=== PATIENT | female | born 1970 | race Caucasian/White ===

== ENCOUNTER → 2016-12-16 | Outpatient (CLI) | payer BC ==
[~2016-12-16] MED LIST: BCPILLS PO; IBUP-1050 PO
--- NOTE | 2016-12-16 12:32 | MAMMOGRAPHY REPORT ---
BILATERAL DIGITAL SCREENING MAMMOGRAM TOMOSYNTHESIS WITH CAD: 12/16/2016 TECHNIQUE: Breast tomosynthesis in addition to standard 2D mammography was performed. Current study was also evaluated with a Computer Aided Detection (CAD) system. COMPARISON: Comparison is made to exams dated: 12/16/2015 mammogram, 12/12/2014 mammogram, 12/11/2013 mammogram, 12/02/2012 mammogram, and 11/26/2011 mammogram - [facility]. BREAST COMPOSITION: The tissue of both breasts is heterogeneously dense, which may obscure small ma sses. FINDINGS: No suspicious masses, calcifications, or areas of architectural distortion are noted in e ither breast. There has been no significant interval change compared to prior exams. Scattered bilat eral benign-appearing calcifications are not significantly changed. IMPRESSION: ACR BI-RADS CATEGORY 2: BENIGN There is no mammographic evidence of malignancy. A 1 year screening mammogram is recommended. The p atient will receive written notification of the results. Approximately 10% of breast cancers are not detected with mammography. A negative mammographic repor t should not delay biopsy if a clinically suggestive mass is present. Olivia Wong M.D. ah/:12/16/2016 10:18:54 Program Director Air Talent: Estefanía DECKER(Marzena)(Solange), [facility] letter sent: Normal 1/2 BI-RADS Code: ACR BI-RADS Category 2: Benign
== END | disposition home or self-care (01) ==
LOC: C.MAMM 09:50
PROVIDERS: ATTEND Obstetrics & Gynecology
DX: Z12.31 Encounter for screening mammogram for malignant neoplasm of breast (principal)

== ENCOUNTER → 2017-01-15 | Outpatient (CLI) | payer BC | END | disposition home or self-care (01) | LOC: C.PAPS 13:44 | PROVIDERS: ATTEND Obstetrics & Gynecology | DX: Z01.419 Encounter for gynecological examination (general) (routine) without abnormal findings (principal); R87.616 Satisfactory cervical smear but lacking transformation zone ==

== ENCOUNTER 2017-06-05 19:42 | Emergency (ER) | payer BC ==
[~2017-06-05] VITALS: Ht 165.1 cm; Wt 61.1 kg
[2017-06-05 19:47] VITALS: BP 154/101; PULSE 79; TEMP 36.8; O2SAT 92; Ht 165.1 cm; Wt 61.1 kg
--- NOTE | 2017-06-05 20:50 | DIAGNOSTIC IMAGING REPORT ---
LEFT VENOUS DOPP LOWER EXT UNILAT CLINICAL HISTORY: Left leg swelling - R/O DVT pain. Edema. TECHNIQUE: Venous Doppler COMPARISON STUDY: None FINDINGS: Normal study IMPRESSION: Normal study The above report was generated using voice recognition software. It may contain grammatical, syntax or spelling errors. Electronically signed by: Andrea Cardoso M.D. 06/05/2017 8:49 PM Dictated Date/Time: 06/05/2017 8:48 PM
--- NOTE | 2017-06-06 00:42 | EMERGENCY ROOM VISIT NOTE ---
History First contact with patient: 19:51 Chief Complaint: LEG PAIN,LEG INJURY Stated Complaint: SWELLING AND PAININ LEG - BLOOD CLOT?? History of Present Illness The patient is a 46 year old female who presents to the Emergency Room with complaints of swelling and pain in her left leg. The patient reports that she just returned from a 12 day trip to [facility]. The patient reports that she did do a lot of walking while there. She is currently wearing a fracture boot after being treated for a second metatarsal stress fracture just a few days before leaving on her trip. She is under the management of Dr. Trinidad, and was told to wear the boot for approximately 4 weeks. The patient reports that she was at the football game today, and was seen by a neurosurgeon who suggested that she have an ultrasound performed to rule out blood clot. The patient is on an oral contraceptive. She denies any history of tobacco use. She also denies any prior history of blood clots. She rates her discomfort a 4 out of 10. Review of Systems 10 system review was performed and was negative except for pertinent positives and negatives as indicated in history of present illness Past Medical/Surgical History Medical Problems: (1) Nonrheumatic Aortic (Valve) Insufficiency (2) Umbilical Hernia Surgical Problems: (1) History of tonsillectomy (2) History of umbilical hernia repair Family History FH: heart disease FH: hypertension Social History Smoking Status: Never Smoker Alcohol Use: occasionally Marital Status: Housing Status: lives with family Occupation Status: unemployed Current/Historical Medications Scheduled Control Pills ( Control Pills), 1 TAB PO DAILY Physical Exam Vital Signs Date Time Temp Pulse Resp B/P (MAP) Pulse Ox O2 Delivery O2 Flow Rate FiO2 06/05/17 19:47 36.8 79 18 154/101 92 Room Air Physical Exam CONSTITUTIONAL: Healthy and well nourished. Alert and oriented X 3 with positive affect. HEENT: Normocephalic, atraumatic. Pupils equal, round and reactive. NECK: Full active range of motion without discomfort. RESPIRATORY: Clear to auscultation bilaterally with no wheezing, crackles, rhonchi or stridor. CARDIOVASCULAR: Regular rate and rhythm with no murmurs, rubs or gallops. MUSCULOSKELETAL: Examination shows mild edema of the left lower extremity. No ecchymosis or erythema noted. She has mild tenderness to palpation through the gastrocnemius. No focal tenderness through the hamstrings or posterior biceps. Negative logroll. Negative sitting straight leg raise. Pedal pulses are intact. INTEGUMENTARY: No rash or other significant dermatologic conditions noted. NEUROLOGIC: Left foot and toes are sensory intact. Medical Decision & Procedures ER Provider Diagnostic Interpretation: Venous ultrasound of the left lower extremity is negative for deep vein thrombosis. Radiologist report is as follows: LEFT VENOUS DOPP LOWER EXT UNILAT CLINICAL HISTORY: Left leg swelling - R/O DVT pain. Edema. TECHNIQUE: Venous Doppler COMPARISON STUDY: None FINDINGS: Normal study IMPRESSION: Normal study ED Course Patient history and physical exam were performed. Nurse's notes were reviewed. Vital signs were reviewed and were normal. The patient refused any analgesics. Venous ultrasound of the left lower extremity is negative for DVT. The patient was advised of her results. She was encouraged to intermittently apply heat and elevate the leg. She was also given instructions on heel pump and toe curl exercises to also help with the swelling. She was encouraged to follow-up with Dr. Trinidad as needed for further management. The patient voiced understanding of all discharge instructions, and was happy with plan of care. Medical Decision I suspect that the patient's edema is likely secondary to ankle immobilization and dependent edema from her fracture boot use. Her ultrasound does not show any evidence for deep vein thrombosis. The patient denies any injury to the leg while in [facility]. She has no skin changes consistent with cellulitis. I do not suspect underlying bony injury or pathologic lesion. Medication Reconcilliation Current Medication List: was personally reviewed by or Blood Pressure Screening Patient's blood pressure: Normal blood pressure Impression Primary Impression: Edema of left lower extremity Departure Information Referrals James Gordon M.D. (PCP) Patient Instructions My [facility]
== END 2017-06-05 21:06 | disposition home or self-care (01) ==
LOC: C.EDB 19:44 → C.EDD 21:06
DX: R60.0 Localized edema (principal); Z82.49 Family history of ischemic heart disease and other diseases of the circulatory system; Z79.3 Long term (current) use of hormonal contraceptives

== ENCOUNTER → 2017-06-15 | Outpatient (CLI) | payer BC ==
[~2017-06-15] MED LIST changes: -IBUP-1050 PO
[2017-06-15 13:36] LABS: BASO % 1.6 %; BASO ABS # 0.09 K/uL (0-0.2); COMPLETE YES; EOS % 1.9 %; HEMATOCRIT 37.8 % (37-47); IG% 0.3 %; LYMPH ABS # 2.43 K/uL (1.2-3.4); MEAN CELL VOLUME 91.3 fL (80-100); MEAN CORPUSCULAR HEMOGLOBIN 31.2 pg (25-34); MEAN CORPUSCULAR HGB CONC 34.1 g/dl (32-36); MEAN PLATELET VOLUME 9.7 fL (7.4-10.4); MONO % 3.5 %; NEUT % 50.7 %; PLATELET COUNT 272 K/uL (130-400); RED BLOOD COUNT 4.14 M/uL (4.2-5.4); WHITE BLOOD COUNT 5.78 K/uL (4.8-10.8)
[2017-06-15 14:23] LABS: ALT/SGPT 29 U/L (12-78); AST/SGOT 30 U/L (15-37); BLOOD UREA NITROGEN 12 mg/dl (7-18); BUN/CREATININE RATIO 19.8 (10-20); CALCIUM 9.1 mg/dl (8.5-10.1); CARBON DIOXIDE 28 mmol/L (21-32); CHLORIDE 106 mmol/L (98-107); CREATININE 0.62 mg/dl (0.60-1.20); GLUCOSE 88 mg/dl (70-99); POTASSIUM 3.9 mmol/L (3.5-5.1); SODIUM 140 mmol/L (136-145)
[2017-06-15 14:34] LABS: ALB/GLOB RATIO 1.2 (0.9-2); ALKALINE PHOSPHATASE 22 U/L (45-117)
[2017-06-15 14:51] LABS: LYME DISEASE AB IGG NEG (NEG); LYME DISEASE AB IGM NEG (NEG)
== END | disposition home or self-care (01) ==
LOC: C.LABBC 11:48
PROVIDERS: ATTEND Physician Assistant
DX: R51 Headache (principal)

== ENCOUNTER → 2017-10-05 | Outpatient (CLI) | payer BC | END | disposition home or self-care (01) | LOC: C.MAMM 13:59 | PROVIDERS: ATTEND Physician Assistant Medical | DX: M84.376A Stress fracture, unspecified foot, initial encounter for fracture (principal) ==

== ENCOUNTER → 2017-10-06 | Outpatient (CLI) | payer BC ==
--- NOTE | 2017-10-06 15:32 | MAMMOGRAPHY REPORT ---
UNILATERAL RIGHT DIGITAL DIAGNOSTIC MAMMOGRAM TOMOSYNTHESIS WITH CAD AND TARGETED RIGHT ULTRASOUND: CLINICAL HISTORY: 46-year-old woman presents after she noticed a small lump in the right lateral [address] approximately 1-1/2 months ago. It has not changed in size since she first noticed it. No overly ing skin thickening or erythema. No nipple discharge. No family history of breast cancer. TECHNIQUE: Right breast tomosynthesis in addition to standard 2D mammography was performed. Current study was also evaluated with a Computer Aided Detection (CAD) system. COMPARISON: Comparison is made to exams dated: 12/16/2016 mammogram, 12/16/2015 mammogram, 12/12/2014 m ammogram, 12/11/2013 mammogram, 12/02/2012 mammogram, and 11/26/2011 mammogram - [facility]. BREAST COMPOSITION: The tissue of the right breast is heterogeneously dense, which may obscure small masses. FINDINGS: A triangular skin palpable marker overlies the upper outer quadrant of the right breast, d enoting the palpable lump pointed out by the patient. No obvious new mass, architectural distortion or cluster of microcalcifications is seen. There is a benign rim calcification in the right upper ou ter quadrant. Targeted ultrasound was performed in the area of palpable lump pointed out by the patient, in the 9:0 0 right breast, 4 cm from the nipple. On palpation, there is a soft round mobile mass smaller than a pea. On ultrasound, sonographically normal tissue is seen without a discrete solid or cystic mass. No focal skin thickening or drainable fluid collection. IMPRESSION: ACR BI-RADS CATEGORY 2: BENIGN, TARGETED ULTRASOUND ACR BI-RADS CATEGORY 2: BENIGN There is no mammographic or targeted sonographic evidence of malignancy. No suspicious mammographic or sonographic abnormality is seen in the right 9:00 breast to correspond to the palpable lump identi fied by the patient. Therefore, clinical follow-up is recommended, as biopsy of a clinically suspici ous mass should not be precluded by negative imaging. Otherwise recommend resuming annual screening mammography schedule, due in November 2017. Approximately 10% of breast cancers are not detected with mammography. A negative mammographic report should not delay biopsy if a clinically suggestive mass is present. Glenny Carrillo M.D. ay/:10/06/2017 13:40:16 Workers' Compensation Hearings Officer: Darshan Moran RT(R)(M), [facility] letter sent: Normal 1/2 BI-RADS Code: ACR BI-RADS Category 2: Benign Ultrasound BI-RADS: ACR BI-RADS Category 2: Benign
== END | disposition home or self-care (01) ==
LOC: C.MAMM 13:09
PROVIDERS: ATTEND Obstetrics & Gynecology
DX: R92.8 Other abnormal and inconclusive findings on diagnostic imaging of breast (principal); N63.10 Unspecified lump in the right breast, unspecified quadrant

== ENCOUNTER → 2017-12-22 | Outpatient (CLI) | payer BC ==
--- NOTE | 2017-12-23 07:49 | MAMMOGRAPHY REPORT ---
BILATERAL DIGITAL SCREENING MAMMOGRAM TOMOSYNTHESIS WITH CAD: 12/22/2017 CLINICAL HISTORY: Routine screening. TECHNIQUE: Breast tomosynthesis in addition to standard 2D mammography was performed. Current study was also evaluated with a Computer Aided Detection (CAD) system. COMPARISON: Comparison is made to exams dated: 10/06/2017 mammogram, 12/16/2016 mammogram, 12/16/2015 m ammogram, 12/12/2014 mammogram, 12/11/2013 mammogram, and 12/02/2012 mammogram - [facility]. BREAST COMPOSITION: The tissue of both breasts is heterogeneously dense, which may obscure small mas ses. FINDINGS: No suspicious masses, calcifications, or areas of architectural distortion are noted in ei ther breast. There has been no significant interval change compared to prior exams. IMPRESSION: ACR BI-RADS CATEGORY 1: NEGATIVE There is no mammographic evidence of malignancy. A 1 year screening mammogram is recommended. The pa tient will receive written notification of the results. Approximately 10% of breast cancers are not detected with mammography. A negative mammographic report should not delay biopsy if a clinically suggestive mass is present. Olivia Wong M.D. ah/:12/22/2017 12:15:00 Supervisor Histology: Darshan DECKER(Marzena)(M), [facility] letter sent: Normal 1/2 BI-RADS Code: ACR BI-RADS Category 1: Negative
== END | disposition home or self-care (01) ==
LOC: C.MAMM 10:00
PROVIDERS: ATTEND Obstetrics & Gynecology
DX: Z12.31 Encounter for screening mammogram for malignant neoplasm of breast (principal)

== ENCOUNTER 2021-07-14 11:46 | Inpatient (IN) ==
[2021-07-14 12:15] LABS: Basophils # (auto) 0.06 K/uL (0-0.2); Basophils % (auto) 1.2 %; Eosinophils # (auto) 0.07 K/uL (0-0.5); Eosinophils % (auto) 1.3 %; Hematocrit (blood only) 38.7 % (37-47); Hemoglobin 12.8 g/dL (12.0-16.0); Immature Granulocytes # (auto) 0.01 K/uL (0.00-0.02); Immature Granulocytes % (auto) 0.2 %; Lymphocytes # (auto) 2.28 K/uL (1.2-3.4); Lymphocytes % (auto) 43.8 %; Mean Corpuscular Hemoglobin 30.4 pg (25-34); Mean Corpuscular Hgb Conc 33.1 g/dL (32-36); Mean Corpuscular Volume 91.9 fL (80-100); Mean Platelet Volume 8.8 fL (7.4-10.4); Monocytes # (auto) 0.24 K/uL (0.11-0.59); Monocytes % (auto) 4.6 %; Neutrophils # (auto) 2.54 K/uL (1.4-6.5); Neutrophils % (auto) 48.9 %; Platelet Count 265 K/uL (130-400); RDW Coefficient of Variation 12.7 % (11.5-14.5); RDW Standard Deviation 42.8 fL (36.4-46.3); Red Blood Count 4.21 M/uL (4.2-5.4)
[2021-07-14 12:21] LABS: Partial Thromboplastin Time 25.8 Seconds (21.0-31.0); Prothrombin Time 10.6 Seconds (9.0-12.0)
--- NOTE | 2021-07-14 12:27 | XRay Report ---
XR chest 1V portable CLINICAL HISTORY: Chest Pain COMPARISON STUDY: No previous studies for comparison. FINDINGS: Incidental note is made of mild S-shaped scoliosis of the thoracolumbar spine. Nipple shado w projects over the left lower lung. Lung volumes are normal. Lungs are clear. There is no pneumothor ax or pleural effusion. Cardiac size is normal. Mediastinal contours are normal. There is no evidence for pulmonary edema. IMPRESSION: No acute cardiopulmonary findings. ACT 112: Negative or not required by law. Electronically signed by: Brayden Bowens M.D. 07/14/2021 12:25 PM
[2021-07-14 12:28] LABS: BUN Creatinine Ratio 13.1 (10-20); Calcium 9.1 mg/dl (8.5-10.1); Creatinine Clr Calc Pharmacy 70.1 ml/min; Est GFR (Non-African American) 82.9 ml/min; Potassium 3.3 mmol/L (3.5-5.1)
--- NOTE | 2021-07-14 12:33 | Emergency Department Note ---
Impression & Plan Precordial chest pain, Abnormal ECG, Elevated troponin, SOB (shortness of breath) ED Provider Note NAME: RJ DEL ROSARIO AGE: 50 SEX: F : 1970 ARRIVES VIA: Walk-In INFORMANT: [Patient] ED PROVIDER(S): [Sajan Bouhcer MD] CHIEF COMPLAINT: Chest pain HISTORY OF PRESENT ILLNESS: The patient is a 50-year-old female presents to the ER with about 3-1/2 hours of left-sided chest pain radiating to the left armpit. The pain was as bad as a 7/10. It was initially sharp and would come and go it then became dull. The patient was working out when the pain began. The pain seemed at times worse to take a deep breath. It was not worse with movement. She was mildly short of breath. No sweating or nausea. She states the pain now is gone. The patient has been in baseline health. She does have a strong cardiac family history. Her brother at age 44 of a heart attack, her father has multiple cardiac stents. The patient states that she does take blood pressure medication, she has been taking this as prescribed. She did in the past see a shirt bander and was told that her heart was okay except for a slightly leaky valve. The patient has no history of DVT or PE, no long trips by car plane or train. REVIEW OF SYSTEMS: See HPI for pertinent positives and negatives. A total of ten systems were reviewed and were otherwise negative. PMHx/PSHx: See Below SOCIAL HISTORY: See Below. PHYSICAL EXAM: GENERAL: Patient is in no acute distress. HEENT: No acute trauma, normocephalic atraumatic, mucous membranes moist, no nasal congestion, no scleral icterus. NECK: No stridor, no adenopathy, no meningismus, trachea is midline. LUNGS: Clear to auscultation bilaterally, no wheeze, no rhonchi, breath sounds equal. Chest: Nontender chest wall. HEART: Without murmurs gallops or rubs, regular rate and rhythm. ABDOMEN: Soft, nontender, bowel sounds positive, no hernias, no peritonitis. EXTREMITIES: No cyanosis or edema, full range of motion of all the joints without pain or difficulty, no signs for acute trauma. NEUROLOGIC: Oriented x 3, no acute motor or sensory deficits, no focal weakness. SKIN: No rash, no jaundice, no diaphoresis. DIFFERENTIAL DIAGNOSIS: Cardiac ischemia, aortic dissection, pulmonary embolism, pneumothorax, pneumonia, pericarditis, myocarditis, esophageal rupture, GERD, cholecystitis, pancreatitis, musculoskeletal, as well as other pathologies. EMERGENCY DEPARTMENT COURSE/PROCEDURES: ECG: Indication was chest pain. The ECG shows a normal sinus rhythm with a rate of 63. There are inverted T waves in the anterior leads. No ST elevation, no PVCs. The QTc is 452. No old ECGs available for comparison. Continuous Cardiac Monitoring: An order was placed for continuous cardiac monitoring. The monitor shows a rate of 67 with normal sinus rhythm. MEDICAL DECISION MAKING: There is no leukocytosis or concerning anemia. There is a normal platelet count. No coagulopathy. D-dimer testing is not elevated making PE less likely. With a negative D-dimer and my low suspicion for PE, I will stop the work-up for this diagnosis. Patient had a slightly low potassium at 3.3. No kidney failure. No concerning liver enzyme elevation. No evidence for pancreatitis. ECG shows a sinus rhythm with some inverted T waves in the anterior leads. No old EKGs were available for comparison. The T wave inversions were concerning for ischemia. There was no ST elevation that would indicate acute AR. Cardiac enzyme testing x1 does show some elevation, this elevation is consistent with cardiac strain/injury. Covid testing returned negative. Chest x-ray did not show pneumonia, mediastinal widening or pneumothorax. Patient was given oral aspirin, she did not require anything for pain as she was pain-free during the time of my evaluation. I did consult cardiology. They suggested a hospital stay, they did recommend IV heparin and further cardiac work-up. There was no need for an emergent cardiac catheterization. I spoke to the patient and skilled nursing case manager. The on-call hospitalist was consulted. Further cardiac work-up is warranted in the hospital setting. Past Med/Surg History Medical History (Updated 07/14/21 @ 19:57 by Sajan Boucher MD) Hypertension Leaky heart valve aortic. MILD AND IS MONITORED EVERY [address] ARMIJO Osteopenia Surgical History History of hernia repair UMBILICAL HERNIA REPAIR History of tonsillectomy History of tooth extraction History of umbilical hernia repair Status post LASIK surgery of both eyes Family History Aunt Breast cancer Brother Coronary heart disease Dyslipidemia Hypertension Myocardial infarction Father Dyslipidemia Heart disease Hypertension Family hx colonic polyps Myocardial infarction Mother Osteoporosis Dyslipidemia Grandmother (Maternal) Osteoporosis Grandmother (Paternal) Osteoporosis Other Aortic aneurysm Depression No family history of adverse response to anesthesia Schizophrenia Denies family history of Ovarian cancer Prostate cancer Colorectal cancer Social History Smoking Status: Never smoker Second Hand Exposure: No; Hx Alcohol Use: Yes Alcohol type: wine Alcohol Intake Frequency: 2-3 x/Week Hx Substance Use: No Preferred Language: Greek Communication Ability: Effective Visual Impairment: No Limitations Hearing Ability: Normal Health Information Manager Required: No Beliefs That Will Affect Care: None marital status: Current Living Situation: Spouse current occupational status: unemployed How many Children do You have: 3 Other Information That Helps Us Care for You: No Feels Safe at Home: Yes Safety Concerns: Feels Safe At This Time Childhood Exposure to Second-Hand Smoke: No caffeine: Yes Dental Care, Regularly: Yes Physical Activity Frequency: 5-6 Times per Week Seatbelt Use: always Sunscreen Use: Yes Assistive Devices: None Allergies Allergies Allergy/AdvReac Type Severity Reaction Status Date / Time No Known Allergies Allergy Unknown Verified 07/14/21 13:52 Home Meds Home Medications Medication Instructions Recorded Confirmed cholecalciferol (vitamin D3) 25 1,000 units PO QAM 06/22/19 07/14/21 mcg (1,000 unit) tablet calcium carbonate 600 mg calcium 600 mg PO QAM tab 10/24/19 07/14/21 (1,500 mg) tablet glucosamine sulfate 500 mg tablet 500 mg PO DAILY tab 05/22/20 07/14/21 (Glucosamine) Previous Rx's Medication Instructions Recorded rizatriptan 10 mg disintegrating 10 mg PO Q2H PRN #7 tab 06/28/19 tablet triamterene 37.5 1 tab PO QAM #90 tab 05/30/21 mg-hydrochlorothiazide 25 mg tablet Results & Data (ED) Vital Signs Vital Signs - 24 hr 07/14/21 11:47 07/14/21 11:51 07/14/21 11:57 Temperature 36.4 C L Temperature Source Oral Pulse Rate 67 Respiratory Rate 16 Respiratory Effort / Characteristics Non-Labored Respiratory Depth Normal Normal Blood Pressure 148/97 H Blood Pressure Mean 114 Blood Pressure Position Sitting Pulse Oximetry 100 Oxygen Delivery Method Room Air Room Air Sepsis Recent Fever Within 48 Hours No Sepsis New/Unexplained Change in Mental Status No Sepsis Action Taken by Nursing No Action Required Home Medications Current Medication List: was personally reviewed by me Laboratory Data Attestation: I reviewed the patient's lab results. Result diagrams: 07/14/21 12:05 07/14/21 12:05 Lab Results 07/14/21 07/14/21 07/14/21 Range/Units 12:05 12:05 12:05 WBC 5.20 (4.8-10.8) K/uL RBC 4.21 (4.2-5.4) M/uL Hgb 12.8 (12.0-16.0) g/dL Hct 38.7 (37-47) % MCV 91.9 (80-100) fL MCH 30.4 (25-34) pg MCHC 33.1 (32-36) g/dL RDW Std Deviation 42.8 (36.4-46.3) fL RDW Coeff of Jamal 12.7 (11.5-14.5) % Plt Count 265 (130-400) K/uL MPV 8.8 (7.4-10.4) fL Immature Gran % (Auto) 0.2 % Neut % (Auto) 48.9 % Lymph % (Auto) 43.8 % Letcher % (Auto) 4.6 % Eos % (Auto) 1.3 % Baso % (Auto) 1.2 % Neut # (Auto) 2.54 (1.4-6.5) K/uL Lymph # (Auto) 2.28 (1.2-3.4) K/uL Letcher # (Auto) 0.24 (0.11-0.59) K/uL Eos # (Auto) 0.07 (0-0.5) K/uL Baso # (Auto) 0.06 (0-0.2) K/uL Immature Gran # (Auto) 0.01 (0.00-0.02) K/uL PT 10.6 (9.0-12.0) Seconds INR 1.0 (0.9-1.1) APTT 25.8 (21.0-31.0) Seconds PTT Ratio 1.0 D-Dimer 260 (0-500) ug/L FEU Sodium 135 L (136-145) mmol/L Potassium 3.3 L (3.5-5.1) mmol/L Chloride 103 (98-107) mmol/L Carbon Dioxide 26 (21-32) mmol/L Anion Gap 7.0 (3-11) BUN 11 (7-18) mg/dl Creatinine 0.82 (0.6-1.2) mg/dl Est Cr Clr Drug Dosing 70.1 ml/min Est GFR ( Amer) 96.0 ml/min Est GFR (Non-Af Amer) 82.9 ml/min BUN/Creatinine Ratio 13.1 (10-20) Glucose 104 H (70-99) mg/dl Calcium 9.1 (8.5-10.1) mg/dl Magnesium 2.2 (1.8-2.4) mg/dl Total Bilirubin 0.5 (0.2-1) mg/dl AST 23 (15-37) U/L ALT 29 (12-78) U/L Alkaline Phosphatase 34 L (45-117) U/L Troponin I 0.205 H* (0-0.045) ng/ml Total Protein 7.6 (6.4-8.2) gm/dl Albumin 4.0 (3.4-5.0) gm/dl Globulin 3.6 (2.5-4.0) gm/dl Albumin/Globulin Ratio 1.1 (0.9-2) Lipase 220 (73-393) U/L 07/14/21 07/14/21 Range/Units 12:05 12:05 WBC (4.8-10.8) K/uL RBC (4.2-5.4) M/uL Hgb (12.0-16.0) g/dL Hct (37-47) % MCV (80-100) fL MCH (25-34) pg MCHC (32-36) g/dL RDW Std Deviation (36.4-46.3) fL RDW Coeff of Jamal (11.5-14.5) % Plt Count (130-400) K/uL MPV (7.4-10.4) fL Immature Gran % (Auto) % Neut % (Auto) % Lymph % (Auto) % Letcher % (Auto) % Eos % (Auto) % Baso % (Auto) % Neut # (Auto) (1.4-6.5) K/uL Lymph # (Auto) (1.2-3.4) K/uL Letcher # (Auto) (0.11-0.59) K/uL Eos # (Auto) (0-0.5) K/uL Baso # (Auto) (0-0.2) K/uL Immature Gran # (Auto) (0.00-0.02) K/uL PT (9.0-12.0) Seconds INR (0.9-1.1) APTT (21.0-31.0) Seconds PTT Ratio D-Dimer Cancelled (0-500) ug/L FEU Sodium (136-145) mmol/L Potassium (3.5-5.1) mmol/L Chloride (98-107) mmol/L Carbon Dioxide (21-32) mmol/L Anion Gap (3-11) BUN (7-18) mg/dl Creatinine (0.6-1.2) mg/dl Est Cr Clr Drug Dosing ml/min Est GFR ( Amer) ml/min Est GFR (Non-Af Amer) ml/min BUN/Creatinine Ratio (10-20) Glucose (70-99) mg/dl Calcium (8.5-10.1) mg/dl Magnesium Cancelled (1.8-2.4) mg/dl Total Bilirubin (0.2-1) mg/dl AST (15-37) U/L ALT (12-78) U/L Alkaline Phosphatase (45-117) U/L Troponin I (0-0.045) ng/ml Total Protein (6.4-8.2) gm/dl Albumin (3.4-5.0) gm/dl Globulin (2.5-4.0) gm/dl Albumin/Globulin Ratio (0.9-2) Lipase Cancelled (73-393) U/L Administered Medications Discontinued Medications Aspirin (Aspirin Chew 324 Mg) 324 mg PO NOW STA Stop: 07/14/21 12:37 Last Admin: 07/14/21 13:05 Dose: 324 mg Documented by: [id number] Heparin Sodium/Dextrose (Heparin Iv Adult Wt-Based Standard *No* Bolus Protocol) 1 ea IV Q30M [facility]; Protocol Stop: 07/14/21 16:40 Last Admin: 07/14/21 16:20 Dose: Not Given Documented by: [id number] Heparin Sodium/Dextrose (Heparin Sodium/Dextrose) 25,000 units in 500 mls @ 20 mls/hr IV .Q24H [facility]; Protocol Stop: 08/13/21 14:29 Last Admin: 07/14/21 14:50 Dose: 1,000 units/hr, 20 mls/hr Documented by: [id number] Cosigned by: [id number] Metoprolol Tartrate (Metoprolol Tartrate 25 Mg Tab) 12.5 mg PO ONE ONE Stop: 07/14/21 14:14 Last Admin: 07/14/21 14:49 Dose: 12.5 mg Documented by: [id number] Nitroglycerin (Nitroglycerin Sl 0.4 Mg/Tab Tab) 0.4 mg SL NOW STA Stop: 07/14/21 14:38 Last Admin: 07/14/21 14:49 Dose: 0.4 mg Documented by: [id number] Imaging Data Radiologist's Impression: Chest X-Ray 07/14/21 11:57 XR chest 1V portable CLINICAL HISTORY: Chest Pain COMPARISON STUDY: No previous studies for comparison. FINDINGS: Incidental note is made of mild S-shaped scoliosis of the thoraco lumbar spine. Nipple shadow projects over the left lower lung. Lung volumes are normal. Lungs are clear. There is no pneumothorax or pleural effusion. Cardiac size is normal. Mediastinal contours are normal. There is no evidence for pulmonary edema. IMPRESSION: No acute cardiopulmonary findings. ACT 112: Negative or not required by law. Electronically signed by: Brayden Bowens M.D. 07/14/2021 12:25 PM Discharge Plan Visit Data Chief Complaint: Chest Pain Stated Complaint: CHEST PAIN ED Provider: Sajan Boucher Discharge Problem: Precordial chest pain, Abnormal ECG, Elevated troponin, SOB (shortness of breath) Patient Disposition: Admitted As Inpatient Condition: Fair Discharge Instructions Interventions: ED Discharge Assessment Last Done: 07/14/21 17:00
[2021-07-14 12:35] LABS: Albumin Globulin Ratio 1.1 (0.9-2); Bilirubin,Total 0.5 mg/dl (0.2-1); Globulin 3.6 gm/dl (2.5-4.0); Total Protein 7.6 gm/dl (6.4-8.2); Troponin I 0.205 ng/ml (0-0.045)
[2021-07-14] MEDS ORDERED: ASPIRIN CHEW 324 MG PO STA (12:36)
[2021-07-14 12:48] LABS: D Dimer 260 ug/L FEU (0-500)
[2021-07-14 13:17] LABS: Magnesium 2.2 mg/dl (1.8-2.4)
[2021-07-14] MEDS ORDERED: Heparin IV Adult Wt-Based Standard *NO* Bolus Protocol IV SCH (14:09)
[2021-07-14] MEDS ORDERED: METOPROLOL TARTRATE 25 MG TAB PO ONE (14:13)
--- NOTE | 2021-07-14 14:15 | History & Physical Report ---
Date of Service July 14, 2021 Assessment & Plan (1) Chest pain: Plan: 50 yo female with atypical chest pain with strong family history. Concern over NSTEMI vs myocarditis vs vasospasm vs demand ischemia. Will need to trend cardiac markers, First set is 0.2 check echo consult cardio place on heparin drip for possibility of NSTEMI Placed on beta blockers and statin Cont ASA. (2) Hypertension: Plan: Placed on beta blockers will monitor BP. History of Present Illness Chief Complaint: chest pain Primary Care Provider: Mary Tsang MD This is a pleasant 50 yo female who reports having a strong family cardiac history:father has CAD with 6 cardiac stents placed, brother from an LAD " maker" Heart attack and in his early 40s. Patient reports while she was exercising with her rehab trainer doing light weights, she developed midsternum sharp intermittent chest pain that radiated to her Jaw, right ear and left shoulder.. Pain last for 5-8 minutes in duration.. Pain was mild but radiated to her left shoulder. Patient stopped exercising and due to her family history of cardiac disease, she decided to drive to the hospital. Pain has been intermittent while in the hospital. Allergies Allergy/AdvReac Type Severity Reaction Status Date / Time No Known Allergies Allergy Unknown Verified 07/14/21 13:52 Home Medications Medication Instructions Recorded Confirmed Type cholecalciferol (vitamin D3) 25 1,000 units PO QAM 06/22/19 07/14/21 History mcg (1,000 unit) tablet rizatriptan 10 mg disintegrating 10 mg PO Q2H PRN #7 tab 06/28/19 07/14/21 Rx tablet calcium carbonate 600 mg calcium 600 mg PO QAM tab 10/24/19 07/14/21 History (1,500 mg) tablet glucosamine sulfate 500 mg tablet 500 mg PO DAILY tab 05/22/20 07/14/21 History (Glucosamine) triamterene 37.5 1 tab PO QAM #90 tab 05/30/21 07/14/21 Rx mg-hydrochlorothiazide 25 mg tablet Past Med/Surg History Medical History Hypertension Leaky heart valve aortic. MILD AND IS MONITORED EVERY [address] ARMIJO Osteopenia Surgical History History of hernia repair UMBILICAL HERNIA REPAIR History of tonsillectomy History of tooth extraction History of umbilical hernia repair Status post LASIK surgery of both eyes Family History Aunt Breast cancer Brother Coronary heart disease Dyslipidemia Hypertension Myocardial infarction Father Dyslipidemia Heart disease Hypertension Family hx colonic polyps Myocardial infarction Mother Osteoporosis Dyslipidemia Grandmother (Maternal) Osteoporosis Grandmother (Paternal) Osteoporosis Other Aortic aneurysm Depression No family history of adverse response to anesthesia Schizophrenia Denies family history of Ovarian cancer Prostate cancer Colorectal cancer Social History Smoking Status: Never smoker Second Hand Exposure: No; Hx Alcohol Use: Yes Alcohol type: wine Alcohol Intake Frequency: 2-3 x/Week Hx Substance Use: No Preferred Language: Indonesian Communication Ability: Effective Visual Impairment: No Limitations Hearing Ability: Normal 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: No Beliefs That Will Affect Care: None marital status: Current Living Situation: Spouse current occupational status: unemployed How many Children do You have: 3 Other Information That Helps Us Care for You: No Feels Safe at Home: Yes Safety Concerns: Feels Safe At This Time Childhood Exposure to Second-Hand Smoke: No caffeine: Yes Dental Care, Regularly: Yes Physical Activity Frequency: 5-6 Times per Week Seatbelt Use: always Sunscreen Use: Yes Assistive Devices: None Review of Systems Constitutional: no sweats and no malaise Eyes: no diplopia and no decreased night vision Ear, Nose, Mouth, Throat: no tinnitus and no dizziness Respiratory: no cough and no change in sputum Cardiovascular: + chest pain and + radiating jaw, neck or arm pain Gastrointestinal: no abdominal pain, no bloating and no nausea Genitourinary: no dysuria Musculoskeletal: no back pain and no radicular pain Integumentary: no acne and no rash Neurologic: no gait abnormality Psychiatric: no behavioral changes Endocrine: no fatigue Hematologic / Lymphatic: no easy bleeding Allergy / Immunological: no GI upset with certain foods Physical Exam Constitutional: WD/WN, vitals as above Eyes: PERRL, conjunctivae normal, anicteric sclerae ENMT: external ear and nose normal, oropharynx normal Neck: trachea midline, no thyromegaly Respiratory: normal respiratory effort, lungs clear to auscultation Cardiovascular: RRR, no murmur, no edema Gastrointestinal (Abdomen): normal bowel sounds, soft, nontender, no hepatosplenomegaly Musculoskeletal: no cyanosis or clubbing, extremities motor strength 5/5 Skin: no rashes, warm and dry Neurologic: PERRL, EOMI, accommodation nl, no face palsy, no dysarthria Psychiatric: A+Ox3, euthymic affect Lymphatic: no cervical or axillary lymphadenopathy Results & Data Results & Data ([facility]) Vital Signs (Past 12 Hours) Vital Signs Temp Pulse Resp BP Pulse Ox 07/14/21 11:51 36.4 C L 67 16 148/97 H 100 Code Status & VTE Plan VTE Prophylaxis Plan VTE Prophylaxis will be ordered: Yes PG Care Time/CCT Total # of Minutes Spent Total Time Spent with Patient: Total time spent is greater than 50% in coordination of care (as documented) at patient's floor/unit and/or counseling patient: Coding Level of Care Code 99493 Initial Inpt Care Lvl 3 Diagnoses Chest pain R07.9 Hypertension I10
[2021-07-14] MEDS ORDERED: HEPARIN SODIUM/DEXTROSE 25,000 UNITS/500 ML BAG IV SCH (14:30)
[2021-07-14] MEDS ORDERED: NITROGLYCERIN SL 0.4 MG/TAB TAB SL STA (14:37)
--- NOTE | 2021-07-14 15:01 | Electrocardiogram Report ---
Test Reason : Blood Pressure : / mmHG Vent. Rate : 063 BPM Atrial Rate : 063 BPM P-R Int : 194 ms QRS Dur : 096 ms QT Int : 442 ms P-R-T Axes : 045 040 034 degrees QTc Int : 452 ms Normal sinus rhythm Possible Left atrial enlargement T wave abnormality, consider anterior ischemia Abnormal ECG No previous ECGs available Confirmed by Doug Brenner ([id number]) on 07/14/2021 3:01:27 PM Referred By: Confirmed By:Doug Brenner
--- NOTE | 2021-07-14 15:11 | Cardiology Consultation ---
Date of Consultation July 14, 2021 Assessment & Plan (1) Chest pain: (2) Aortic insufficiency: (3) Hypertension: 1. Chest pain: She presents with her first episode of chest discomfort which occurred while doing moderate exercise (less than she is used to, including a 5 mile run yesterday). The symptoms waxed and waned however were dull initially and sharp later. She does have some indicators that this might be myocardial ischemia including a slightly elevated troponin and some anterior T wave changes although the T wave abnormalities are similar to what she has had before although more pronounced today. The discomfort may have been relieved by nitroglycerin in the emergency room. They did not change management director 3 hours in the emergency room. Her echocardiogram does not show any change in her aortic size. There did not appear to be wall motion abnormalities or left ventricular dilatation. 2. Aortic insufficiency: She has a history of aortic insufficiency which has been graded mild to moderate, it does not appear any different on bedside review of the echocardiogram and would not explain her discomfort. 3. Hypertension: Her blood pressure has been quite elevated here and she was started on beta-blockade, she was on hydrochlorothiazide at home. I agree with the use of metoprolol in this setting. History of Present Illness Reason for Consultation: Chest pain History of Present Illness This is a 50-year-old woman with a strong family history of heart disease, including premature heart disease, as well as hypertension. She has a history o f aortic insufficiency and had seen Dr. Monet in the past, most recently Glenny Moreno in 2018. Prior to that she had an echocardiogram November 27, 2013 where she had a mildly dilated left ventricle with normal systolic function and mild to moderate aortic insufficiency with what was felt to be a minimally dilated ascending aorta measured at 3.6 cm. She did have a stress echo done on January 10, 2014 where she exercised for 12 minutes on the Lino protocol (she is a runner) and reached 88% of her maximal predicted heart rate with no evidence of ischemia. An MRA of the thoracic aorta was done on January 23, 2014 and was felt to be normal. A repeat echocardiogram done January 23, 2015 showed minimal LV dilatation with low normal systolic function and ejection fraction of 50 to 55% with mild aortic insufficiency. Her most recent echocardiogram was performed on October 25, 2020 and showed normal left ventricular size and systolic function with only trace aortic insufficiency and a mildly dilated ascending aorta at 3.7 cm. Her cholesterol in Oct 2020 was 205 with an HDL of 94, Non-HDL cholesterol therefore 111 without treatment but a strict diet. She does have high BP and is on treatment. She presented to the emergency room today with prolonged chest discomfort which occurred while working out. It started as a chest tightness and waxed and waned somewhat for at least about 3 hours then resolved in the ER. She was pain free for a short time than had recurrence of quite severe pain relieved by NTG times one. She is pain free at the time of my evaluation. No other symptoms, no change in exercise tolerance. She ran 5 miles yesterday, was dong strength training today. No palpitations. Evaluation here includes an electrocardiogram today at 11:53 AM showing sinus rhythm with an anterior T wave inversion, these T wave inversions have been present on prior electrocardiograms but are more pronounced on the current 1. They could represent a persistent juvenile pattern or myocardial ischemia. A repeat ECG at 1548 is very similar. Laboratory studies include a first troponin of 0.205. CXR is unremarkable. Allergies Allergy/AdvReac Type Severity Reaction Status Date / Time No Known Allergies Allergy Unknown Verified 07/14/21 13:52 Home Medications Medication Instructions Recorded Confirmed Type cholecalciferol (vitamin D3) 25 1,000 units PO QAM 06/22/19 07/14/21 History mcg (1,000 unit) tablet rizatriptan 10 mg disintegrating 10 mg PO Q2H PRN #7 tab 06/28/19 07/14/21 Rx tablet calcium carbonate 600 mg calcium 600 mg PO QAM tab 10/24/19 07/14/21 History (1,500 mg) tablet glucosamine sulfate 500 mg tablet 500 mg PO DAILY tab 05/22/20 07/14/21 History (Glucosamine) triamterene 37.5 1 tab PO QAM #90 tab 05/30/21 07/14/21 Rx mg-hydrochlorothiazide 25 mg tablet Patient History Medical History Hypertension Leaky heart valve aortic. MILD AND IS MONITORED EVERY [address] ARMIJO Osteopenia Surgical History History of hernia repair UMBILICAL HERNIA REPAIR History of tonsillectomy History of tooth extraction History of umbilical hernia repair Status post LASIK surgery of both eyes Family History Aunt Breast cancer Brother Coronary heart disease Dyslipidemia Hypertension Myocardial infarction Father Dyslipidemia Heart disease Hypertension Family hx colonic polyps Myocardial infarction Mother Osteoporosis Dyslipidemia Grandmother (Maternal) Osteoporosis Grandmother (Paternal) Osteoporosis Other Aortic aneurysm Depression No family history of adverse response to anesthesia Schizophrenia Denies family history of Ovarian cancer Prostate cancer Colorectal cancer Social History Smoking Status: Never smoker Second Hand Exposure: No; Hx Alcohol Use: Yes Alcohol type: wine Alcohol Intake Frequency: 2-3 x/Week Hx Substance Use: No Preferred Language: Malagasy Communication Ability: Effective Visual Impairment: No Limitations Hearing Ability: Normal Spares Scheduler Required: No Beliefs That Will Affect Care: None marital status: Current Living Situation: Spouse current occupational status: unemployed How many Children do You have: 3 Feels Safe at Home: Yes Childhood Exposure to Second-Hand Smoke: No caffeine: Yes Dental Care, Regularly: Yes Physical Activity Frequency: 5-6 Times per Week Seatbelt Use: always Sunscreen Use: Yes Assistive Devices: None Review of Systems Review of Systems: All systems reviewed & are unremarkable except as noted in HPI & below Physical Exam Physical Exam: Constitutional: Alert, cooperative and in no distress. HEENT: Unremarkable Neck: No jugular venous distention, carotid pulses are normal and equal bilaterally without bruits. Pulmonary: Clear to auscultation bilaterally. Cardiac: Regular rhythm with no murmur, gallop or rub. Abdomen: Soft, nontender with normal bowel sounds. Extremities: No edema. Distal pulses intact. Neurologic: No focal findings. Gait is steady. Skin: No rash, ecchymoses or petechiae. Results & Data ([facility]) Vital Signs (Past 12 Hours) Vital Signs Temp Pulse Resp BP Pulse Ox 07/14/21 11:51 36.4 C L 67 16 148/97 H 100 Laboratory Results Cardiac Enzymes 07/14/21 Range/Units 12:05 AST 23 (15-37) U/L Troponin I 0.205 H* (0-0.045) ng/ml Coagulation 07/14/21 Range/Units 12:05 PT 10.6 (9.0-12.0) Seconds APTT 25.8 (21.0-31.0) Seconds CBC 07/14/21 Range/Units 12:05 WBC 5.20 (4.8-10.8) K/uL RBC 4.21 (4.2-5.4) M/uL Hgb 12.8 (12.0-16.0) g/dL Hct 38.7 (37-47) % Plt Count 265 (130-400) K/uL Neut # (Auto) 2.54 (1.4-6.5) K/uL Lymph # (Auto) 2.28 (1.2-3.4) K/uL J[place]uld # (Auto) 0.24 (0.11-0.59) K/uL Eos # (Auto) 0.07 (0-0.5) K/uL Baso # (Auto) 0.06 (0-0.2) K/uL Comprehensive Metabolic Panel 07/14/21 Range/Units 12:05 Sodium 135 L (136-145) mmol/L Potassium 3.3 L (3.5-5.1) mmol/L Chloride 103 (98-107) mmol/L Carbon Dioxide 26 (21-32) mmol/L BUN 11 (7-18) mg/dl Creatinine 0.82 (0.6-1.2) mg/dl Glucose 104 H (70-99) mg/dl Calcium 9.1 (8.5-10.1) mg/dl AST 23 (15-37) U/L ALT 29 (12-78) U/L Alkaline Phosphatase 34 L (45-117) U/L Total Protein 7.6 (6.4-8.2) gm/dl Albumin 4.0 (3.4-5.0) gm/dl Intake and Output 07/14/21 07/14/21 07/14/21 06:59 14:59 22:59 Other: Weight 60.6 kg Weight Measurement Method Built in [facility] Patient Weight 07/15/21 06:59 Weight 60.6 kg PG Care Time/CCT Total # of Minutes Spent Total Time Spent with Patient: Total time spent is greater than 50% in coordination of care (as documented) at patient's floor/unit and/or counseling patient: Coding Level of Care Code 62430 Inpt Consult Level 5 Diagnoses Chest pain R07.9 Aortic insufficiency I35.1 Hypertension I10
[2021-07-14] MEDS ORDERED: niCARdipine HCL INJ 2.5 MG/ML 10 ML AMP ONE ×2 (16:48→16:51)
[2021-07-14] MEDS ORDERED: NITROGLYCERIN/D5W 100MCG/ML 20ML SYR ONE (16:48)
[2021-07-14] MEDS ORDERED: HEPARIN (PORCINE) 1000 UNIT/ML 10 ML (CATH LAB USE ONLY) ONE (16:51)
--- NOTE | 2021-07-14 16:51 | Electrocardiogram Report ---
Test Reason : Blood Pressure : / mmHG Vent. Rate : 054 BPM Atrial Rate : 054 BPM P-R Int : 194 ms QRS Dur : 086 ms QT Int : 458 ms P-R-T Axes : 030 049 047 degrees QTc Int : 434 ms Sinus bradycardia T wave abnormality, consider anterior ischemia Abnormal ECG When compared with ECG of 14-JUL-2021 11:53, No significant change Confirmed by Doug Brenner ([id number]) on 07/14/2021 4:50:44 PM Referred By: REFERRED SELF Confirmed By:Doug Brenner
[2021-07-14] MEDS ORDERED: MIDAZOLAM HCL 1 MG/ML 2ML VIAL ONE (16:52)
[2021-07-14] MEDS ORDERED: fentaNYL citrate 100 MCG/2 ML VIAL ONE (16:52)
--- NOTE | 2021-07-14 17:17 | Pre Anesthesia Assessment ---
Date of Service July 14, 2021 Pre Sedation Assessment Vital Signs Temp Pulse Pulse Resp BP BP Pulse Ox 07/14/21 16:30 61 20 141/92 H 100 07/14/21 11:51 97.5 F L 67 16 148/97 H 100 Cardiovascular RRR, no murmur, no edema Respiratory normal respiratory effort, lungs clear to auscultation Pre-Sedation Airway Assessment Smoking Status: Never smoker Hx Sleep Apnea: No Hx Difficult Intubation: No Short, Thick Neck: No Thyromental Distance: > or= 3.5 Finger Breadths Oral Cavity: + WNL Mallampati Class: III ASA: ASA3 Procedure Planning Contraindications for Sedation: none Current Medications Reviewed: Yes Notes The planned sedation has been discussed with the patient. Informed Consent was obtained. I have identified the patient, determined the appropriateness of sedation and have assessed the patient immediately prior to the procedure. All medicine(s) and interventions are by my order.
--- NOTE | 2021-07-14 17:20 | Cardiac Catheterization ---
[facility] Data: Support Staff Cardiac Status Clinical evaluation leading to the procedure CAD Presenation: Non STEMI Anginal Classification: CCS III Heart Failure: No Cardiogenic Shock within 24 Hours: No Cardiac Arrest within 24 Hours: No Imaging Studies Past 6 Months: Yes Stress Studies Past 6 Months: No Diagnostic Physicians Name: Parker Landry MD Status: Elective Closure Device Percutaneous Entry Location: Radial Closure Device: Radial Band Recommendations: Medical Therapy and/or Counseling Intraprocedure Events Significant Disection: No Perforation: No Cardiac Cath Procedure Full Procedure Date July 14, 2021 Pre-Procedure Diagnosis Pre-Procedure Diagnosis: Non STEMI AUC Score AUC Score: 8 Post-Procedure Diagnosis Post-Procedure Diagnosis: Mild CAD and Normal Intracardiac Pressures Procedure(s) Performed Procedure(s) Performed: Coronary Angiography and Left Heart Cath Family Medicine Physician Assistant Parker Landry MD Director Of Officiating(s) Keshawn Estimated Blood Loss Estimated Blood Loss: 10 Medication(s) Medication(s): Fentanyl, Heparin, Lidocaine 1%, Nicardipine, Nitroglycerin and Versed Summary of Findings Indication: Suspected ACS Access: 6 Fr right radial artery Catheters: Peggs, diagnostic JR4 Findings: LM -large caliber, no significant disease LAD -large caliber, 40% mid stenosis with myocardial bridging. Distal vessel with sluggish flow but no significant disease. Large D2 without disease. Circumflex -large caliber, no significant disease RCA -dominant, large caliber, no significant disease. Small PDA, distal vessel angulated with RUBIO II flow LVEDP -2 Arterial Closure: TR band Summary: 1. Mild to moderate nonobstructive coronary artery disease -40% mid LAD with myocardial bridging 2. Sluggish distal LAD/PDA flow potentially consistent with vasospasm/alejandro rovascular dysfunction. 3. Normal intracardiac filling pressure Recommendations: Suspect symptoms secondary vasospasm vs myocarditis. Continue to trend troponin until peak Continue aspirin, statin, ASCVD risk factor modification Consider addition of calcium channel evans or long-acting nitrate for vasospasm Hemodynamics Rest Ao:: 125/73/100 Final Ao: 124/66/91 LV: 121/2 Recommendations Recommendations: Medical Therapy and/or Counseling Specimens Specimens: None Radiation Exposure (mGy) 445 Contrast (mls) 50 Fluids (cc crystalloids) Fluids (cc crystalloids): 50 Drains Drains: None Anesthesia Moderate 9984-5683 Procedural Complication(s) None Disposition PCU I attest to the content of the Intraoperative Record and any orders documented therein. Any exceptions are noted below. [facility] Card Cath Procedure Codes Cardiac Catheterization Procedure 1: Cardiovascular Cath Procedures: 39698 Coronaries and LHC (+/-LV) Moderate Sedation Procedure 1: Sedation/Anesthesia: 51654 Mod Sedation by the same physician;Init15 Min Child Age 5 & Up PG Care Time/CCT Total # of Minutes Spent Total Time Spent with Patient: Total time spent is greater than 50% in coordination of care (as documented) at patient's floor/unit and/or counseling patient:
[2021-07-14] MEDS ORDERED: SODIUM CHLORIDE 0.9% 1000ML 500 ML IV SCH (18:00)
[2021-07-14] MEDS ORDERED: FLUARIX QUADRIVALENT 0.5 ML SYR IM ONE (19:20)
--- NOTE | 2021-07-14 21:41 | XCELERA ---
[id number]
[2021-07-14] MEDS: ATORVASTATIN 40 MG TAB PO SCH (22:02)
[2021-07-14] MEDS: METOPROLOL TARTRATE 25 MG TAB PO SCH (22:02)
[2021-07-15 02:51] LABS: Basophils # (auto) 0.07 K/uL (0-0.2); Basophils % (auto) 1.2 %; Eosinophils % (auto) 1.7 %; Hematocrit (blood only) 38.1 % (37-47); Hemoglobin 12.5 g/dL (12.0-16.0); Lymphocytes # (auto) 2.69 K/uL (1.2-3.4); Lymphocytes % (auto) 46.5 %; Mean Corpuscular Hgb Conc 32.8 g/dL (32-36); Mean Corpuscular Volume 91.6 fL (80-100); Mean Platelet Volume 8.6 fL (7.4-10.4); Monocytes # (auto) 0.33 K/uL (0.11-0.59); Monocytes % (auto) 5.7 %; Neutrophils % (auto) 44.9 %; Platelet Count 246 K/uL (130-400); RDW Coefficient of Variation 12.8 % (11.5-14.5); RDW Standard Deviation 42.6 fL (36.4-46.3); Red Blood Count 4.16 M/uL (4.2-5.4); White Blood Count 5.79 K/uL (4.8-10.8)
[2021-07-15 03:20] LABS: Albumin Level 3.3 gm/dl (3.4-5.0); BUN Creatinine Ratio 15.1 (10-20); Calcium 8.6 mg/dl (8.5-10.1); Creatinine Clr Calc Pharmacy 82.1 ml/min; Est GFR (African American) 116.3 ml/min; Est GFR (Non-African American) 100.3 ml/min; Potassium 3.8 mmol/L (3.5-5.1)
[2021-07-15 03:28] LABS: Bilirubin Direct 0.1 mg/dl (0-0.2); Bilirubin,Total 0.4 mg/dl (0.2-1); Globulin 3.3 gm/dl (2.5-4.0); Total Protein 6.6 gm/dl (6.4-8.2); Troponin I 0.202 ng/ml (0-0.045)
[2021-07-15] MEDS: METOPROLOL TARTRATE 25 MG TAB PO SCH ×2 (09:26→20:49)
[2021-07-15] MEDS: ASPIRIN 81 MG ECTAB PO SCH (09:26)
--- NOTE | 2021-07-15 10:07 | Cardiology Progress Note ---
Date of Service July 15, 2021 Assessment & Plan (1) Chest pain: (2) Aortic insufficiency: (3) Hypertension: (4) CAD (coronary artery disease): Plan: 1. Chest pain: Her presentation now seems most consistent with myocarditis, she has a sustained low level of troponin with no trend. Her symptoms could be that or pericarditis that we're not seeing on electrocardiogram to a great extent. I would recommend treatment with colchicine and will start 0.6 mg twice a day. Beta-evans therapy is acceptable although I don't know if it is strictly necessary but since she is on it it would probably be worthwhile for the short- term in any case. 2. Aortic insufficiency: She has a history of aortic insufficiency which has been graded mild to moderate, it does not appear any different and would not explain her discomfort. 3. Hypertension: Her blood pressure was quite high on presentation but resolved quickly with beta-blockade, at home she was on hydrochlorothiazide. For the short-term I would recommend continue with beta-blockade although over the long run she may not tolerate it. 4. Coronary disease: She does have coronary disease although it is not sufficient to explain her presentation. She should be on risk factor modification I discussed that with her including diet, exercise, blood pressure control and statin therapy. The only real change will be statin therapy. She is on Lipitor 80 mg daily, I don't know that I would start that high but perhaps 40 mg daily at discharge. We cannot use her cholesterol profile to determine therapy since she has coronary disease. I would recommend having her see Dr. Monet in the office within 2 weeks, and I'm going to schedule her for a troponin next week and will enter that in her outpatient orders. Admission and Anticipated Discharge Date Admission Date: July 14, 2021 Subjective She is feeling well this morning, she did have an episode of chest discomfort during the night which has now resolved. No discomfort at her cath site. Physical Exam Physical Exam: Constitutional: Alert, cooperative and in no distress. HEENT: Unremarkable Neck: No jugular venous distention, carotid pulses are normal and equal bilaterally without bruits. Pulmonary: Clear to auscultation bilaterally. Cardiac: Regular rhythm with no murmur, gallop or rub. Abdomen: Soft, nontender with normal bowel sounds. Extremities: No edema. Distal pulses intact. Neurologic: No focal findings. Gait is steady. Skin: No rash, ecchymoses or petechiae. Results & Data ([facility]) Vital Signs (Past 12 Hours) Vital Signs Temp Pulse Pulse Resp BP Pulse Ox 07/15/21 09:49 48 L 07/15/21 07:50 36.5 C 53 L 16 112/70 98 07/15/21 04:14 36.8 C 46 L 15 111/77 99 07/15/21 00:04 36.6 C 50 L 14 118/80 97 07/14/21 22:10 59 L 19 127/83 97 Laboratory Results Cardiac Enzymes 07/14/21 07/14/21 07/14/21 Range/Units 12:05 15:49 15:53 AST 23 (15-37) U/L Troponin I 0.205 H* 0.191 H* 0.197 H* (0-0.045) ng/ml 07/15/21 07/15/21 Range/Units 02:41 08:15 AST 20 (15-37) U/L Troponin I 0.202 H* 0.200 H* (0-0.045) ng/ml Coagulation 07/14/21 Range/Units 12:05 PT 10.6 (9.0-12.0) Seconds APTT 25.8 (21.0-31.0) Seconds Lipids 07/15/21 Range/Units 02:41 Triglycerides 85 (0-150) mg/dl Cholesterol 177 (0-200) mg/dl HDL Cholesterol 66 mg/dl Cholesterol/HDL Ratio 3 CBC 07/14/21 07/15/21 Range/Units 12:05 02:41 WBC 5.20 5.79 (4.8-10.8) K/uL RBC 4.21 4.16 L (4.2-5.4) M/uL Hgb 12.8 12.5 (12.0-16.0) g/dL Hct 38.7 38.1 (37-47) % Plt Count 265 246 (130-400) K/uL Neut # (Auto) 2.54 2.60 (1.4-6.5) K/uL Lymph # (Auto) 2.28 2.69 (1.2-3.4) K/uL Haakon # (Auto) 0.24 0.33 (0.11-0.59) K/uL Eos # (Auto) 0.07 0.10 (0-0.5) K/uL Baso # (Auto) 0.06 0.07 (0-0.2) K/uL Comprehensive Metabolic Panel 07/14/21 07/15/21 Range/Units 12:05 02:41 Sodium 135 L 138 (136-145) mmol/L Potassium 3.3 L 3.8 D (3.5-5.1) mmol/L Chloride 103 108 H (98-107) mmol/L Carbon Dioxide 26 24 (21-32) mmol/L BUN 11 11 (7-18) mg/dl Creatinine 0.82 0.70 (0.6-1.2) mg/dl Glucose 104 H 93 (70-99) mg/dl Calcium 9.1 8.6 (8.5-10.1) mg/dl Direct Bilirubin 0.1 (0-0.2) mg/dl AST 23 20 (15-37) U/L ALT 29 25 (12-78) U/L Alkaline Phosphatase 34 L 30 L (45-117) U/L Total Protein 7.6 6.6 (6.4-8.2) gm/dl Albumin 4.0 3.3 L (3.4-5.0) gm/dl Intake and Output 07/14/21 07/15/21 07/15/21 22:59 06:59 14:59 Intake Total 83.333 / 583.333 500 / 583.333 Balance 83.333 / 583.333 500 / 583.333 Intake: IV 83.333 / 583.333 500 / 583.333 Heparin Sodium/Dextrose 25,000 83.333 / 83.333 units In 500 ml @ 1,000 UNITS/ HR 20 mls/hr IV .Q24H YANI Rx#: [id number] Sodium Chloride 0.9% 1000ML 500 500 / 500 ml @ 75 mls/hr IV .Q6H40M YANI Rx#:[id number] Other: # Unmeasured Voids 1 Weight 59.8 kg Weight Measurement Method Built in [facility] Mostly did Diagnostic Findings Telemetry: Sinus rhythm and sinus bradycardia, no significant arrhythmia PG Care Time/CCT Total # of Minutes Spent Total Time Spent with Patient: Total time spent is greater than 50% in coordination of care (as documented) at patient's floor/unit and/or counseling patient: Coding Level of Care Code 22952 Subseq Hosp Care Lvl 3 Diagnoses Chest pain R07.9 Aortic insufficiency I35.1 Hypertension I10 CAD (coronary artery disease) I25.10
[2021-07-15] MEDS: COLCHICINE 0.6 MG TAB PO SCH ×2 (11:21→20:50)
[2021-07-15 12:08] LABS: D Dimer 380 ug/L FEU (0-500)
[2021-07-15 15:24] LABS: Adenovirus PCR Not Detected (NotDetected); Bordetella parapertussis PCR Not Detected (NotDetected); Bordetella pertussis PCR Not Detected (NotDetected); Chlamydia pneumoniae PCR Not Detected (NotDetected); Coronavirus 229E PCR Not Detected (NotDetected); Coronavirus CoV-2 (COVID19)PCR Not Detected (NotDetected); Coronavirus HKU1 PCR Not Detected (NotDetected); Coronavirus NL63 PCR Not Detected (NotDetected); Coronavirus OC43PCR Not Detected (NotDetected); Human Metapneumovirus PCR Not Detected (NotDetected); Influenza A PCR Not Detected (NotDetected); Influenza B PCR Not Detected (NotDetected); Mycoplasma pneumoniae PCR Not Detected (NotDetected); Parainfluenza Virus 1 PCR Not Detected (NotDetected); Parainfluenza Virus 2 PCR Not Detected (NotDetected); Parainfluenza Virus 3 PCR Not Detected (NotDetected); Parainfluenza Virus 4 PCR Not Detected (NotDetected); Respiratory Syncytial VirusPCR Not Detected (NotDetected); Rhinovirus/Enterovirus PCR Not Detected (NotDetected)
[2021-07-15] MEDS ORDERED: NITROGLYCERIN SL 0.4 MG/TAB TAB SL STA (16:02)
[2021-07-15] MEDS ORDERED: NITROGLYCERIN SL 0.4 MG/TAB TAB ONE (16:04)
[2021-07-15] MEDS ORDERED: SODIUM CHLORIDE 0.9% 500 ML IV SCH (17:15)
[2021-07-15] MEDS ORDERED: OPTIRAY 320 125ml IV ONE (17:36)
--- NOTE | 2021-07-15 17:52 | CT Scan Report ---
CT ANGIOGRAM OF THE CHEST COMBO CLINICAL HISTORY: Atypical chest pain. Dyspnea. COMPARISON STUDY: Chest x-ray dated 07/14/2021. Abdominal CT dated 08/07/2010. TECHNIQUE: Before and following the IV administration of 123 cc of Optiray 320, CT angiogram of the c hest was performed from the thoracic inlet to the upper abdomen utilizing the dissection protocol. Im ages are reviewed in the axial, sagittal, and coronal planes. 3-D MIPS images are created and assesse d. IV contrast was administered without complication. A dose lowering technique was utilized adherin g to the principles of ALARA. CT DOSE: 422.22 mGy.cm FINDINGS: Thyroid: Imaged portions of the thyroid gland are normal in size and attenuation. Thoracic aorta: No intramural hematoma is seen on the unenhanced series. There is mild aneurysmal dil atation of the ascending thoracic aorta which measures up to 4.1 cm in diameter. The remainder of the thoracic aorta is normal in caliber, and the arch demonstrates standard 3-vessel anatomy. No dissect ion is seen. The arch vessels are widely patent. Pulmonary vasculature: The pulmonary trunk is normal in caliber. There are no filling defects within the main, lobar, or segmental pulmonary arteries to indicate pulmonary embolus. Heart: The heart is normal in size and without pericardial effusion. Lungs and pleural spaces: There is minimal dependent atelectasis. No airspace consolidation or pleura l effusion is identified. The trachea and central airways are clear. Mediastinum: There is no mediastinal lymphadenopathy. Hannah: Clear. Axillae: There is no axillary lymphadenopathy. Upper abdomen: There is an indeterminant 2.5 cm lesion in the left lobe of liver seen on image #282. Partially visualized upper abdominal viscera is within normal limits. Skeletal structures: No lytic or blastic bony lesions are seen. There is mild thoracolumbar scoliosis . IMPRESSION: 1. There is mild aneurysmal dilatation of the ascending thoracic aorta which measures up to 4.1 cm in diameter. 2. The remainder of the thoracic aorta is normal in caliber. No dissection is seen. 3. The lungs are clear. 4. There is no evidence of pulmonary embolus in the main, lobar, or segmental pulmonary arteries. 5. There is a 2.5 cm indeterminate low-attenuation lesion in the left lobe of the liver. This is inde terminant, but represents a change from the [address] scan. A nonemergent contrast-enhanced l iver protocol MRI is recommended for further evaluation. 6. Additional findings as above. ACT 112: Negative or not required by law. Electronically signed by: Sajan Kowaslki M.D. 07/15/2021 5:50 PM
[2021-07-15] MEDS: ATORVASTATIN 40 MG TAB PO SCH (20:50)
--- NOTE | 2021-07-15 21:07 | Hospitalist Progress Note ---
Date of Service July 15, 2021 Assessment & Plan (1) Chest pain: Plan: In light of her cardiac cath results - etiology- coronary spasm? myopericarditis? other? the response to nitro would suggest more so coronary spasm. has not needed NSAIDs thus far to stay comfortable. consider CCB (or imdur)? defer to cardiology. if myopericarditis - cont colchicine BID. CTA chest NEGATIVE for PE, aortic dissection, pneumonia, etc. 500cc NS post-CT for renal excretion of contrast. (2) Pleuritic pain: Plan: CTA chest neg for dissection, PE, or pneumonia. pericarditis/myopericarditis? other? pain resolved with nitro. (3) Myocarditis: Plan: vs myopericarditis? if present, odd that pleuritic chest pain is responding to nitro. Have not needed to use NSAIDs to date. repeat troponin in am. of note - crp, sed rate, procalcitonin all wnl. BioFire resp panel negative. COVID neg. Echo without pericardial effusion (doesn't rule out pericarditis). EF preserved on echo. (4) Nonobstructive atherosclerosis of coronary artery: Plan: cardiac cath 07/14/[address] Landry. 40% LAD lesion with sluggish flow of distal LAD/PDA - suggestive of vasospasm/microvascular dysfunction? cont asa. cont statin - likely can lower lipitor dose to 40mg daily. hold BB due to significant bradycardia (HR low 40s at rest). (5) Elevated troponin: Plan: Troponin level cont to remain mildly elevated at ~0.2. There has been no "injury" pattern (trop peak, then resolution). Spoke with Dr Brenner - troponin elevation 2nd to myocarditis? myopericarditis? See #3. Repeat troponin in am. (6) Aortic insufficiency: Plan: dx on previous echo. 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 (7) Ascending aortic aneurysm: Plan: CTA chest today with peak diameter of 4.1cm. This will need to have, at minimum, annual surveillance. Aortic dissection NOT seen. (8) Hypertension: Plan: Hold HCTZ. Metoprolol to be held due to significant bradycardia. Admission and Anticipated Discharge Date Admission Date: July 14, 2021 Subjective saw patient multiple times today. first was during AM rounds. she reports that she had another episode of chest discomfort in the middle of the night. somewhat pleuritic. was not worse w/ laying down. improved actually with laying down. did not radiate like previous episodes of pain. lasted for several minutes then resolved. episode was not as intense as the episode that brought her to the hospital. denies any recent travel, surgery, prolonged immobilization. pt's daughter has had a respiratory/viral illness for several weeks. following the first visit we elected to perform a BioFire and crp/sed rate due to ?myopericarditis and her daughter's recent illness. in the afternoon Ms Shea took a walk in her room. after walking around 5- 6x's she developed pleuritic chest pain over the left breast. she was mildly short of breath. she felt anxious because of "can't being able to breathe or take a deep breath." she said this episode was indeed similar to yesterday's symptoms. repeat exam was normal. EKG obtained- unchanged from priors. SL nitro x 1 given - within several minutes the pain was gone. updated at bedside several times throughout the day. Review of Systems Review of Systems: gen - no fevers or chills; no recent illnesses. appetite ok cv - see HPI; no orthopnea pulm - no cough, no congestion GI - no abd pain, N/V musculo - no pain with moving either arm Physical Exam Physical Exam: gen - tearful at times, but healthy-appearing, NAD neck - no JVD mouth - MMM lymph - no cervical LAD heart - RR, elva, s1 s2, no murmur lungs - CTA b/l chest - no reproducible chest wall tenderness to palpation abd - soft NT ND BS+ ext - no edema, pulses 2+ b/l skin - no hematoma over right wrist Results & Data Results & Data ([facility]) Vital Signs (Past 12 Hours) Vital Signs Temp Pulse Pulse Resp BP Pulse Ox 07/15/21 19:31 36.6 C 43 L 18 137/83 96 07/15/21 18:39 131/81 07/15/21 15:40 151/87 H 07/15/21 15:35 135/92 07/15/21 13:00 36.6 C 48 L 18 106/64 98 07/15/21 09:49 48 L Laboratory Results Laboratory Results - last 24 hr 07/15/21 07/15/21 07/15/21 02:41 02:41 08:15 WBC 5.79 RBC 4.16 L Hgb 12.5 Hct 38.1 MCV 91.6 MCH 30.0 MCHC 32.8 RDW Std Deviation 42.6 RDW Coeff of Jamal 12.8 Plt Count 246 MPV 8.6 Immature Gran % (Auto) 0.0 Neut % (Auto) 44.9 Lymph % (Auto) 46.5 Greeley % (Auto) 5.7 Eos % (Auto) 1.7 Baso % (Auto) 1.2 Neut # (Auto) 2.60 Lymph # (Auto) 2.69 [place] # (Auto) 0.33 Eos # (Auto) 0.10 Baso # (Auto) 0.07 Immature Gran # (Auto) 0.00 ESR D-Dimer Sodium 138 Potassium 3.8 D Chloride 108 H Carbon Dioxide 24 Anion Gap 7.0 BUN 11 Creatinine 0.70 Est Cr Clr Drug Dosing 82.1 Est GFR ( Amer) 116.3 Est GFR (Non-Af Amer) 100.3 BUN/Creatinine Ratio 15.1 Glucose 93 Calcium 8.6 Total Bilirubin 0.4 Direct Bilirubin 0.1 AST 20 ALT 25 Alkaline Phosphatase 30 L Troponin I 0.202 H* 0.200 H* C-Reactive Protein Total Protein 6.6 Albumin 3.3 L Globulin 3.3 Albumin/Globulin Ratio 1.0 Triglycerides 85 Cholesterol 177 LDL Cholesterol, Calc 94 VLDL Cholesterol, Calc 17 HDL Cholesterol 66 Cholesterol/HDL Ratio 3 Procalcitonin Adenovirus (PCR) B. pertussis DNA (PCR) B.parapertussis DNA PCR C. pneumoniae DNA (PCR) Coronavirus OC43 (PCR) Coronavirus HKU1 (PCR) Coronavirus 229E (PCR) COVID-19 Eval Order SARS-CoV-2 (PCR) Coronavirus NL63 (PCR) Human Metapneumovir PCR Influenza Type A (PCR) Influenza Type B (PCR) M. pneumoniae (PCR) Parainfluenza 1 (PCR) Parainfluenza 2 (PCR) Parainfluenza 3 (PCR) Parainfluenza 4 (PCR) RSV (PCR) Entero/Rhino (PCR) 07/15/21 07/15/21 07/15/21 11:42 11:42 11:43 WBC RBC Hgb Hct MCV MCH MCHC RDW Std Deviation RDW Coeff of Jamal Plt Count MPV Immature Gran % (Auto) Neut % (Auto) Lymph % (Auto) [place] % (Auto) Eos % (Auto) Baso % (Auto) Neut # (Auto) Lymph # (Auto) [place] # (Auto) Eos # (Auto) Baso # (Auto) Immature Gran # (Auto) ESR 8 D-Dimer 380 Sodium Potassium Chloride Carbon Dioxide Anion Gap BUN Creatinine Est Cr Clr Drug Dosing Est GFR ( Amer) Est GFR (Non-Af Amer) BUN/Creatinine Ratio Glucose Calcium Total Bilirubin Direct Bilirubin AST ALT Alkaline Phosphatase Troponin I C-Reactive Protein < 0.29 Total Protein Albumin Globulin Albumin/Globulin Ratio Triglycerides Cholesterol LDL Cholesterol, Calc VLDL Cholesterol, Calc HDL Cholesterol Cholesterol/HDL Ratio Procalcitonin Adenovirus (PCR) B. pertussis DNA (PCR) B.parapertussis DNA PCR C. pneumoniae DNA (PCR) Coronavirus OC43 (PCR) Coronavirus HKU1 (PCR) Coronavirus 229E (PCR) COVID-19 Eval Order SARS-CoV-2 (PCR) Coronavirus NL63 (PCR) Human Metapneumovir PCR Influenza Type A (PCR) Influenza Type B (PCR) M. pneumoniae (PCR) Parainfluenza 1 (PCR) Parainfluenza 2 (PCR) Parainfluenza 3 (PCR) Parainfluenza 4 (PCR) RSV (PCR) Entero/Rhino (PCR) 07/15/21 07/15/21 07/15/21 11:43 12:50 12:50 WBC RBC Hgb Hct MCV MCH MCHC RDW Std Deviation RDW Coeff of Jamal Plt Count MPV Immature Gran % (Auto) Neut % (Auto) Lymph % (Auto) [place] % (Auto) Eos % (Auto) Baso % (Auto) Neut # (Auto) Lymph # (Auto) [place] # (Auto) Eos # (Auto) Baso # (Auto) Immature Gran # (Auto) ESR D-Dimer Sodium Potassium Chloride Carbon Dioxide Anion Gap BUN Creatinine Est Cr Clr Drug Dosing Est GFR ( Amer) Est GFR (Non-Af Amer) BUN/Creatinine Ratio Glucose Calcium Total Bilirubin Direct Bilirubin AST ALT Alkaline Phosphatase Troponin I C-Reactive Protein Total Protein Albumin Globulin Albumin/Globulin Ratio Triglycerides Cholesterol LDL Cholesterol, Calc VLDL Cholesterol, Calc HDL Cholesterol Cholesterol/HDL Ratio Procalcitonin < 0.05 Adenovirus (PCR) Not Detected B. pertussis DNA (PCR) Not Detected B.parapertussis DNA PCR Not Detected C. pneumoniae DNA (PCR) Not Detected Coronavirus OC43 (PCR) Not Detected Coronavirus HKU1 (PCR) Not Detected Coronavirus 229E (PCR) Not Detected COVID-19 Eval Order [facility]NP at [facility] SARS-CoV-2 (PCR) Not Detected Coronavirus NL63 (PCR) Not Detected Human Metapneumovir PCR Not Detected Influenza Type A (PCR) Not Detected Influenza Type B (PCR) Not Detected M. pneumoniae (PCR) Not Detected Parainfluenza 1 (PCR) Not Detected Parainfluenza 2 (PCR) Not Detected Parainfluenza 3 (PCR) Not Detected Parainfluenza 4 (PCR) Not Detected RSV (PCR) Not Detected Entero/Rhino (PCR) Not Detected 07/15/21 14:16 WBC RBC Hgb Hct MCV MCH MCHC RDW Std Deviation RDW Coeff of Jamal Plt Count MPV Immature Gran % (Auto) Neut % (Auto) Lymph % (Auto) [place] % (Auto) Eos % (Auto) Baso % (Auto) Neut # (Auto) Lymph # (Auto) [place] # (Auto) Eos # (Auto) Baso # (Auto) Immature Gran # (Auto) ESR D-Dimer Sodium Potassium Chloride Carbon Dioxide Anion Gap BUN Creatinine Est Cr Clr Drug Dosing Est GFR ( Amer) Est GFR (Non-Af Amer) BUN/Creatinine Ratio Glucose Calcium Total Bilirubin Direct Bilirubin AST ALT Alkaline Phosphatase Troponin I 0.197 H* C-Reactive Protein Total Protein Albumin Globulin Albumin/Globulin Ratio Triglycerides Cholesterol LDL Cholesterol, Calc VLDL Cholesterol, Calc HDL Cholesterol Cholesterol/HDL Ratio Procalcitonin Adenovirus (PCR) B. pertussis DNA (PCR) B.parapertussis DNA PCR C. pneumoniae DNA (PCR) Coronavirus OC43 (PCR) Coronavirus HKU1 (PCR) Coronavirus 229E (PCR) COVID-19 Eval Order SARS-CoV-2 (PCR) Coronavirus NL63 (PCR) Human Metapneumovir PCR Influenza Type A (PCR) Influenza Type B (PCR) M. pneumoniae (PCR) Parainfluenza 1 (PCR) Parainfluenza 2 (PCR) Parainfluenza 3 (PCR) Parainfluenza 4 (PCR) RSV (PCR) Entero/Rhino (PCR) Diagnostic Findings EKG this afternoon - my reading - sinus elva, T wave inversions anteroseptal leads, no changes from prior EKG PG Care Time/CCT Total # of Minutes Spent Total Time Spent with Patient: Total time spent is greater than 50% in coordination of care (as documented) at patient's floor/unit and/or counseling patient: Coding Level of Care Code 13252 Subseq Hosp Care Lvl 3 Diagnoses Nonobstructive atherosclerosis of coronary artery I25.10 Aortic insufficiency I35.1 Ascending aortic aneurysm I71.2 Hypertension I10 Chest pain R07.9 Elevated troponin R77.8 Myocarditis I51.4 Pleuritic pain R07.81
[2021-07-16 05:12] LABS: BUN Creatinine Ratio 14.7 (10-20); Calcium 8.4 mg/dl (8.5-10.1); Creatinine Clr Calc Pharmacy 87.1 ml/min; Est GFR (African American) 118.5 ml/min; Est GFR (Non-African American) 102.3 ml/min; Potassium 3.8 mmol/L (3.5-5.1)
[2021-07-16 05:19] LABS: Troponin I 0.18 ng/ml (0-0.045)
[2021-07-16] MEDS: COLCHICINE 0.6 MG TAB PO SCH (09:43)
[2021-07-16] MEDS: ASPIRIN 81 MG ECTAB PO SCH (09:43)
--- NOTE | 2021-07-16 09:44 | Cardiology Progress Note ---
Date of Service July 16, 2021 Assessment & Plan (1) Chest pain: (2) Aortic insufficiency: (3) Hypertension: (4) CAD (coronary artery disease): Plan: 1. Chest pain: Her presentation continues to be most consistent with myocarditis, her troponin today is slightly lower and her trend is for a gradual decrease in troponin since presentation, despite chest discomfort yesterday. Her symptoms of chest discomfort are probably pericarditis that we're not seeing on electrocardiogram. Colchicine could take several days to work, therefore the discomfort yesterday does not suggest lack of efficacy. Beta-evans therapy is acceptable although I don't know if it is strictly necessary but since she is on it it would probably be worthwhile for the short-term in any case. 2. Aortic insufficiency: She has a history of aortic insufficiency which has been graded mild to moderate, it does not appear any different and would not explain her discomfort. This should be followed over the long run but no need for further evaluation now. 3. Hypertension: Her blood pressure was quite high on presentation but resolved quickly with beta-blockade, at home she was on hydrochlorothiazide. For the short-term I would recommend continue with beta-blockade although over the long run she may not tolerate it. 4. Coronary disease: She does have coronary disease although it is not sufficient to explain her presentation. She should be on risk factor modification and I discussed that with her yesterday including diet, exercise, blood pressure control and statin therapy. The only real change will be statin therapy. She is on Lipitor and I would continue it. We cannot use her cholesterol profile to guide therapy since she has coronary disease. I would recommend having her see Dr. Monet in the office within 2 weeks, and I'm going to schedule her for a troponin next week and did enter that in her outpatient orders. Admission and Anticipated Discharge Date Admission Date: July 14, 2021 Subjective She is feeling well today. No further chest discomfort since the episode yesterday. No other cardiovascular complaints. Physical Exam Physical Exam: Constitutional: Alert, cooperative and in no distress. HEENT: Unremarkable Neck: No jugular venous distention, carotid pulses are normal and equal bilaterally without bruits. Pulmonary: Clear to auscultation bilaterally. Cardiac: Regular rhythm with no murmur, gallop or rub. Abdomen: Soft, nontender with normal bowel sounds. Extremities: No edema. Distal pulses intact. Neurologic: No focal findings. Gait is steady. Skin: No rash, ecchymoses or petechiae. Results & Data ([facility]) Vital Signs (Past 12 Hours) Vital Signs Temp Pulse Pulse Resp BP Pulse Ox 07/16/21 08:10 45 L 07/16/21 07:43 36.8 C 45 L 14 115/71 99 07/16/21 04:46 36.5 C 51 L 13 110/62 99 07/15/21 23:40 36.7 C 53 L 21 121/76 97 Laboratory Results Cardiac Enzymes 07/15/21 07/16/21 Range/Units 14:16 04:38 Troponin I 0.197 H* 0.180 H* (0-0.045) ng/ml Comprehensive Metabolic Panel 07/16/21 Range/Units 04:38 Sodium 139 (136-145) mmol/L Potassium 3.8 (3.5-5.1) mmol/L Chloride 111 H (98-107) mmol/L Carbon Dioxide 27 (21-32) mmol/L BUN 10 (7-18) mg/dl Creatinine 0.66 (0.6-1.2) mg/dl Glucose 93 (70-99) mg/dl Calcium 8.4 L (8.5-10.1) mg/dl Intake and Output 07/15/21 07/16/21 07/16/21 22:59 06:59 14:59 Intake Total 500 / 500 Balance 500 / 500 Intake: IV 500 / 500 Sodium Chloride 0.9% 500 ml @ 500 / 500 100 mls/hr IV .Q5H YANI Rx#: [id number] Other: # Unmeasured Voids 3 Weight 59.8 kg Diagnostic Findings Telemetry: Sinus rhythm, sinus bradycardia, no significant abnormality PG Care Time/CCT Total # of Minutes Spent Total Time Spent with Patient: Total time spent is greater than 50% in coordination of care (as documented) at patient's floor/unit and/or counseling patient: Coding Level of Care Code 57663 Subseq Hosp Care Lvl 2 Diagnoses Chest pain R07.9 Aortic insufficiency I35.1 Hypertension I10 CAD (coronary artery disease) I25.10
--- NOTE | 2021-07-16 11:30 | Electrocardiogram Report ---
Test Reason : Blood Pressure : / mmHG Vent. Rate : 052 BPM Atrial Rate : 052 BPM P-R Int : 198 ms QRS Dur : 088 ms QT Int : 450 ms P-R-T Axes : 026 043 034 degrees QTc Int : 418 ms Sinus bradycardia T wave abnormality, consider anterior ischemia Abnormal ECG When compared with ECG of 14-JUL-2021 15:48, No significant change was found Confirmed by Doug Brenner ([id number]) on 07/16/2021 11:29:51 AM Referred By: REFERRED SELF Confirmed By:Doug Brenner
--- NOTE | 2021-07-16 12:29 | Discharge Summary ---
Date of Service date of admission - July 14, 2021 date of discharge - July 16, 2021 Admission HPI Per Admitting Provider This is a pleasant 50 yo female who reports having a strong family cardiac history - father has CAD with 6 cardiac stents placed, brother from an LAD " maker" heart attack in his early 40s. Patient reports while she was exercising with her quality review trainer doing light weights she developed midsternal, sharp, intermittent chest pain that radiated to her jaw, right ear and left shoulder.. Pain lasted for 5-8 minutes in duration. Pain was mild in intensity. Patient stopped exercising and due to her family history of cardiac disease she decided to drive to the hospital. Pain has been intermittent while in the hospital ER. Principal Diagnosis 1. chest pain - suspected myopericarditis 2. nonobstructive CAD 3. ascending aortic aneurysm Discharge Exam Gen - NAD, pleasant Mouth - MMM Neck - no JVD Heart - RR, bradycardic, s1 s2, no murmur, no rub Lungs - CTA b/l Chest - no reproducible chest wall tenderness to palpation Abd - soft, NT, ND, BS+, no HSM Ext - no edema, pulses 2+ b/l Skin - right radial catheterization insertion site clean, minimal ecchymoses, no hematoma or aneurysm Discharge Data Allergies Allergy/AdvReac Type Severity Reaction Status Date / Time No Known Allergies Allergy Unknown Verified 07/14/21 13:52 Consultations [facility] Procedures Performed Operation Date: 07/14/21 16:45 Actual Procedures p Cath, Left with Cors and Vent - Parker Landry MD s Cineradiography w/Routine Exam - Parker Landry MD Findings: LM -large caliber, no significant disease LAD -large caliber, 40% mid stenosis with myocardial bridging. Distal vessel with sluggish flow but no significant disease. Large D2 without disease. Circumflex -large caliber, no significant disease RCA -dominant, large caliber, no significant disease. Small PDA, distal vessel angulated with RUBIO II flow LVEDP -2 Summary: 1. Mild to moderate nonobstructive coronary artery disease -40% mid LAD with myocardial bridging 2. Sluggish distal LAD/PDA flow potentially consistent with vasospasm/microvascular dysfunction. 3. Normal intracardiac filling pressure Echocardiogram: * EF 60-65% * no regional wall motion abnormalities * mild aortic regurgitation * mild ascending aortic dilatation 3.7cm (unchanged from prior echo) * no pericardial effusion Ordered Studies Chest X-Ray 07/14/21 11:57 XR chest 1V portable CLINICAL HISTORY: Chest Pain COMPARISON STUDY: No previous studies for comparison. FINDINGS: Incidental note is made of mild S-shaped scoliosis of the thoracolumbar spine. Nipple shadow projects over the left lower lung. Lung volumes are normal. Lungs are clear. There is no pneumothorax or pleural effusion. Cardiac size is normal. Mediastinal contours are normal. There is no evidence for pulmonary edema. IMPRESSION: No acute cardiopulmonary findings. ACT 112: Negative or not required by law. Electronically signed by: Brayden Bowens M.D. 07/14/2021 12:25 PM Chest CTA 07/15/21 17:03 CT ANGIOGRAM OF THE CHEST COMBO CLINICAL HISTORY: Atypical chest pain. Dyspnea. COMPARISON STUDY: Chest x-ray dated 07/14/2021. Abdominal CT dated 08/07/2010. TECHNIQUE: Before and following the IV administration of 123 cc of Optiray 320, CT angiogram of the chest was performed from the thoracic inlet to the upper abdomen utilizing the dissection protocol. Images are reviewed in the axial, sagittal, and coronal planes. 3-D MIPS images are created and assessed. IV contrast was administered without complication. A dose lowering technique was utilized adhering to the principles of ALARA. CT DOSE: 422.22 mGy.cm FINDINGS: Thyroid: Imaged portions of the thyroid gland are normal in size and attenuation. Thoracic aorta: No intramural hematoma is seen on the unenhanced series. There is mild aneurysmal dilatation of the ascending thoracic aorta which measures up to 4.1 cm in diameter. The remainder of the thoracic aorta is normal in caliber, and the arch demonstrates standard 3-vessel anatomy. No dissection is seen. The arch vessels are widely patent. Pulmonary vasculature: The pulmonary trunk is normal in caliber. There are no filling defects within the main, lobar, or segmental pulmonary arteries to indicate pulmonary embolus. Heart: The heart is normal in size and without pericardial effusion. Lungs and pleural spaces: There is minimal dependent atelectasis. No airspace consolidation or pleural effusion is identified. The trachea and central airways are clear. Mediastinum: There is no mediastinal lymphadenopathy. Hannah: Clear. Axillae: There is no axillary lymphadenopathy. Upper abdomen: There is an indeterminant 2.5 cm lesion in the left lobe of liver seen on image #[id number]. Partially visualized upper abdominal viscera is within normal limits. Skeletal structures: No lytic or blastic bony lesions are seen. There is mild thoracolumbar scoliosis. IMPRESSION: 1. There is mild aneurysmal dilatation of the ascending thoracic aorta which measures up to 4.1 cm in diameter. 2. The remainder of the thoracic aorta is normal in caliber. No dissection is seen. 3. The lungs are clear. 4. There is no evidence of pulmonary embolus in the main, lobar, or segmental pulmonary arteries. 5. There is a 2.5 cm indeterminate low-attenuation lesion in the left lobe of the liver. This is indeterminant, but represents a change from the [address] scan. A nonemergent contrast-enhanced liver protocol MRI is recommended for further evaluation. 6. Additional findings as above. ACT 112: Negative or not required by law. Electronically signed by: Sajan Kowalski M.D. 07/15/2021 5:50 PM COVID-19 PCR testing negative [employer] Respiratory Panel negative Hospital Course (1) Chest pain: Initial troponin upon ER presentation was mildly elevated at 0.2. In light of her symptoms, strong family history of CAD, and abnormal EKG (anterior T wave abnormalities) she was taken to the cardiac catheterization lab by Dr Parker Landry on day of admission. This revealed nonobstructive CAD in her LAD only, about 40% stenosis with myocardial bridging. Coronary vasospasm was not overtly seen. However, the distal LAD had sluggish flow and the possibility of coronary vasospasm as the cause of her presenting symptoms was not fully ruled out. Over the next 48 hours the patient had recurrent episodes of left-sided chest pain, pleuritic in nature, and sometimes associated with dyspnea. Serial troponins continued to show mild elevation in the 0.18 to 0.2 range. At times her pain would respond to nitroglycerin. On hospital day #[address] Doug Brenner, [facility]. Given her recurrent symptoms, pleuritic chest pain, mild troponin elevation, etc - all in the absence of obstructive CAD - it was felt that the patient likely had myopericarditis. She was initiated on colchicine BID. Coronary vasospasm could not be 100% ruled out but was felt unlikely. To ensure no aortic dissection given her ascending aortic aneurysm a CTA chest study was obtained and fortunately did NOT show PE, aortic dissection, pneumonia, or other pathology to explain her symptoms. Work-up for myopericarditis was undertaken including sed rate and crp (both normal) along with [employer] respiratory panel which returned negative. Certainly having a negative sed rate and crp does not rule out the diagnosis of myopericarditis. On hospital day #3 the patient's chest symptoms were fully resolved. She was able to ambulate comfortably with no chest pain or dyspnea. Pleuritic pain was resolved. At discharge we advised the following - * colchicine 0.6mg twice daily for potentially up to 3 months in duration * motrin 600mg prn for pleuritic pain/discomfort * repeat troponin in about 1 week to ensure downward trend * f/u with [facility] cardiology within 1 week (2) Pleuritic pain: CTA chest neg for dissection, PE, or pneumonia. Myopericarditis was suspected. The patient's chest symptoms often did resolve with nitroglycerin. For a period of time coronary vasospasm was entertained but felt to be less likely the etiology of her symptoms. (3) Myocarditis: Myopericarditis. Peak troponin 0.2. Of note - crp, sed rate, procalcitonin all wnl. [employer] resp panel negative. COVID neg. Echo without pericardial effusion. EF preserved on echo. Colchicine 0.6mg PO BID at discharge. Motrin 600mg PO PRN for chest symptoms. f/u with repeat troponin and cardiology visit both within 1 week of discharge. (4) Nonobstructive atherosclerosis of coronary artery: cardiac cath 07/14/[address] Parker Landry. 40% LAD lesion with sluggish flow of distal LAD/PDA - suggestive of vasospasm/microvascular dysfunction? cont asa. cont statin - lipitor 40mg daily. cont metoprolol albeit at low dose of 12.5mg BID (pt had bradycardia to the low 40s with the 25mg dose). LDL = 94 on lipid profile. (5) Elevated troponin: Troponin levels were 0.18 to 0.2 during the stay. There was never a peak and fall of her troponin. Troponin elevation was thought 2nd to myopericarditis. Will need repeat troponin level in 1 week post-discharge. See discussion above. (6) Aortic insufficiency: Seen on previous echos. Current echo with mild AI - will follow with Dr Lv Monet, her primary crotch piece baster. (7) Ascending aortic aneurysm: CTA chest with peak diameter of 4.1cm. This will need to have, at minimum, annual surveillance. Aortic dissection NOT seen. (8) Hypertension: HCTZ stopped. Metoprolol 12.5mg BID to be used in patricia. (9) Liver lesion, left lobe: 2.5cm. Indeterminate. Seen incidentally on CTA chest. LFTs wnl during the visit. Follow-up with PCP to arrange additional imaging. Total Time Total Time Spent Total Time Spent (In Minutes): 50 Discharge Plan Discharge Items Patient Disposition: Home - Self-Care Reason For Visit: Chest pain Discharge Diagnosis: Chest pain - improving. Heart attack ruled out. Chest pain suspected to be from myopericarditis. Coronary vasospasm is possible but felt to be less likely. Mild non-obstructive coronary artery disease found on heart catheterization in 1 out of [address] scan of chest did NOT show blood clots or aortic dissection which can cause chest pain. Activity: Per Instructions section Sexual Activity: Wait until after follow-up appointment Exercise/Sports: Wait until after follow-up appointment Non-emergency contact: Primary Care Provider Call non-emergency contact if: you have any medication questions, your symptoms worsen, your pain is not controlled, your pain is worsening and your pain is concerning for you Follow-up/Referrals: Kwan Monet MD [Physician] - (1 week ) Mary Tsang MD [Primary Care Provider] - Diet: Heart Healthy Add Attending Provider Instructions: Mrs Shea, You were admitted to the hospital after having had chest pain. Your initial blood work for the heart (blood test called "troponin") was mildly positive upon admission. There was concern, especially given your family history of coronary disease, your symptoms, and your troponin elevation - that your pain was coming from blocked coronary arteries. Dr Parker Landry performed a heart catheterization while you were here. This showed that 1 of the 3 major coronary arteries had plaque build-up in it leading to a 40% narrowing. (The LAD - left anterior descending artery - had the plaque). It was felt that the chest pain was NOT coming from this narrowing as this amount does not typically lead to chest pain symptoms. You had additional episodes of chest pain which often were worse with taking deep breaths. We call this "pleuritic" chest pain. We performed a CAT scan of the lungs to rule out blood clots and aortic dissection. The CAT scan did not show these conditions; it also did not show pneumonia. The CAT scan did show the already-known ascending aortic aneurysm (enlargement of the aorta). It is mild at this time, about 3.7cm to 4cm in size, but you will need follow-up for this. Dr Doug Brenner from [facility] saw you during the stay and felt that you likely have "myopericarditis" as the cause of your symptoms. There are various causes of this condition but one of the more frequent culprits is a viral infection. We did do a viral panel while here which did not show a specific virus but there are other viruses that can cause this condition that were not tested for. Your COVID test x [address] Brenner recommended starting colchicine twice daily for suspected myopericarditis. There is a possibility that some of the pain could be "coronary vasospasm" but this is a difficult diagnosis to make unless the spasm is seen during a heart catheterization. Recommendations - 1. colchicine 0.6mg twice daily - your crotch piece baster will tell you how long to take; it could be for up to 90 days. This medication can cause diarrhea. 2. ibuprofen (motrin) 600mg every 8 hours as needed for chest discomfort/chest symptoms. 3. atorvastatin (lipitor) 40mg once daily at bedtime. Most common side effect - muscle cramps/aches. This is for cholesterol. 4. aspirin 81mg once daily. You can purchase this [id number]. 5. metoprolol 12.5mg twice daily. This is for your heart and your blood pressure. 6. please STOP your triamterene/HCTZ blood pressure pill. 7. for your ascending aortic aneurysm, which measures about 3.7cm - 4cm in size , please ask the crotch piece baster or your family doctor to refer you to a vascular surgeon to monitor this over time. 8. there is a small spot in the left lobe of your liver that will need additional pictures. Many time these spots are benign cysts or benign hemangiomas. However, would definitely recommend obtaining additional imaging (MRI or CAT scan). Please ask your family doctor to coordinate this for you. Follow-up - see separate section Restrictions following your heart catheterization - see below Return to [facility] if - * your chest pains return and it is not responding to ibuprofen/colchicine * you have shortness of breath * you have worsening pain with taking deep breaths (pleuritic pain) * you have any concerns about your right wrist from the recent heart catheterization * any other concerns It was a pleasure to care for you and please continue to feel better! Addtl Principle Software Engineer Provider Instructions: ACTIVITY RECOMMENDATIONS following your heart catheterization and hospital stay: It is common to feel weak and fatigue for a few days. * Do not drive or operate any motorized equipment for the next three days. * Limit stair usage (2 or 3 trips a day only) for the next three days. * Do not lift anything heavier than 10 pounds until the time of your cardiology follow-up appointment. * Do not engage in vigorous exercise or any sports until you are seen by the crotch piece baster. * You may shower at this time, but do not immerse the right wrist for three days. Cleanse the site gently with soap and water. SPECIAL CARE INSTRUCTIONS: * After your procedure, it is normal to have a small bruise or small lump at the site. Examine your site daily for any change in the bruise or lump, redness, swelling, drainage or numbness. Notify your doctor if any change. BLEEDING: * If there is a small amount of bleeding at the site, lie down and apply firm pressure with a clean cloth for ten minutes. When the bleeding stops, lie quietly keeping the procedure limb straight for six hours. Notify your doctor as soon as possible. * If the bleeding does not stop after ten minutes or if there is a large amount of bleeding or spurting, call 911 immediately. Continue to lie down and hold firm pressure until help arrives. SKIN IRRITATION: * You may experience some redness and/or swelling in the area where radiation was administered. If any skin irritation occurs, please contact your family physician. Pending Studies at Discharge: No Stand-Alone Forms: [facility], Smoking Cessation Medications and DC Order Prescriptions: New atorvastatin 40 mg Tablet 40 mg PO HS Qty: 30 RF: 5 metoprolol tartrate 25 mg Tablet 12.5 mg PO BID Qty: 60 RF: 5 aspirin 81 mg Tablet,Delayed Release (Dr/Ec) 81 mg PO QAM Qty: 30 RF: 0 colchicine [Colcrys] 0.6 mg Tablet 0.6 mg PO BID Qty: 60 RF: 2 Continued calcium carbonate 600 mg calcium (1,500 mg) tablet 600 mg PO QAM RF: 0 cholecalciferol (vitamin D3) 1,000 unit (25 mcg) tablet 1,000 units PO QAM RF: 0 rizatriptan 10 mg tablet,disintegrating 10 mg PO Q2H PRN (Reason: migraine headache) Qty: 7 RF: 3 glucosamine sulfate [Glucosamine] 500 mg tablet 500 mg PO DAILY RF: 0 Discontinued triamterene-hydrochlorothiazid 37.5-25 mg tablet 1 tab PO QAM Qty: 90 RF: 1 Discharge Orders: Discharge Order (Routine); Ordered 07/16/21 Ordered By: Rivera Eli/Other Patient Handouts: Troponin, Pericarditis, CAD Admission Data Admit Date/Time: 07/14/21 14:01 Attending Provider: Rivera Lopez Admit Provider: Madan Jacques Primary Care Provider: Mary Tsang Other Providers: Diomedes Landry ; Madan Jacques ; Doug Brenner Other Interventions: Discharge Summary Assessment (RN) Last Done: 07/16/21 12:22 Coding Level of Care Code D/C DAY MANAGEMENT >30 MINS Diagnoses Chest pain R07.9 Pleuritic pain R07.81 Myocarditis I51.4 Nonobstructive atherosclerosis of coronary artery I25.10 Elevated troponin R77.8 Aortic insufficiency I35.1 Ascending aortic aneurysm I71.2 Hypertension I10 Liver lesion, left lobe K76.9
--- NOTE | 2021-07-17 11:55 | Electrocardiogram Report ---
Test Reason : Blood Pressure : / mmHG Vent. Rate : 047 BPM Atrial Rate : 047 BPM P-R Int : 206 ms QRS Dur : 088 ms QT Int : 476 ms P-R-T Axes : 036 043 014 degrees QTc Int : 421 ms Sinus bradycardia Minimal voltage criteria for LVH, may be normal variant Cannot rule out Anterior infarct , age undetermined Abnormal ECG When compared with ECG of 14-JUL-2021 19:06, (unconfirmed) No significant change was found Confirmed by Doug Brenner ([id number]) on 07/17/2021 11:54:45 AM Referred By: REFERRED SELF Confirmed By:Doug Brenner
--- NOTE | 2021-07-17 12:16 | Electrocardiogram Report ---
Test Reason : Blood Pressure : / mmHG Vent. Rate : 050 BPM Atrial Rate : 050 BPM P-R Int : 194 ms QRS Dur : 094 ms QT Int : 450 ms P-R-T Axes : 045 046 041 degrees QTc Int : 410 ms Sinus bradycardia Minimal voltage criteria for LVH, may be normal variant Borderline ECG When compared with ECG of 15-JUL-2021 15:31, (unconfirmed) No significant change was found Confirmed by Doug Brenner ([id number]) on 07/17/2021 12:15:47 PM Referred By: REFERRED SELF Confirmed By:Doug Brenner
== END 2021-07-16 13:41 | disposition home or self-care (01) | DRG 287 ==
LOC: ED 11:46 → SUATTDRO 14:01 → EDINP 17:00 → CC 17:14 → EDINP 17:15 → 1E 19:02
DX: I25.10 Atherosclerotic heart disease of native coronary artery without angina pectoris; I10 Essential (primary) hypertension; R79.89 Other specified abnormal findings of blood chemistry; I71.2 Thoracic aortic aneurysm, without rupture; Z82.49 Family history of ischemic heart disease and other diseases of the circulatory system; I35.1 Nonrheumatic aortic (valve) insufficiency; R00.1 Bradycardia, unspecified; I31.9 Disease of pericardium, unspecified